=== PATIENT | female | born 1980 | race Caucasian/White ===

== ENCOUNTER → 2016-08-14 | Outpatient (CLI) | payer OTHER ==
[2016-04-01 22:15] VITALS: BP 124/75
[~2016-08-14] MED LIST: BENZ100C PO; HYDR-2758 PO
--- NOTE | 2016-08-14 10:47 | KCIC ---
Pelvic ultrasound HISTORY: Pelvic pain. Transabdominal scan Uterus measures 8.0 cm longitudinal by 3.4 cm AP by 4.4 cm wide. Transvaginal scan Uterus measures 8.8 cm longitudinal by 3.4 cm AP. Endometrial stripe measures 4 mm. Right ovary measures 3.1 cm long [place] with small follicular cysts. There is some vascularity documented on color flow Doppler images. Left ovary measures 3.9 cm long [place]. Left ovary contains a large complex cystic lesion with internal septation and mural nodule at its base. Color Doppler blood flow is identified within the septation. There is also some irregularity along the wall of this complex cystic lesion. Positive left ovarian blood flow is identified with duplex analysis. Mild free pelvic fluid is noted. There is a irregular region of tissue identified within the cervix with a cystic component. This measures about 5 mm in diameter. No significant hypervascularity here. IMPRESSION: 1. Complex cystic mass of the left ovary. Benign and malignant etiologies should be considered. Recommend further workup, which could include short-term follow-up pelvic ultrasound or MRI of the pelvis. 2. Small area of tissue heterogeneity within the cervix with cystic component, questionable significance. Electronically signed by: Geronimo Young MD (08/14/2016 10:44 AM)
== END | disposition home or self-care (01) ==
LOC: KCIC US 09:39
PROVIDERS: ATTEND Obstetrics & Gynecology
DX: N83.292 Other ovarian cyst, left side (principal)
CPT/HCPCS: 76830; 76856

== ENCOUNTER → 2016-08-21 | Outpatient (CLI) | payer OTHER ==
[2016-04-01 22:15] VITALS: BP 124/75
--- NOTE | 2016-08-21 13:18 | KCIC ---
Bone Densitometry History: Diabetic female. Screening. Findings: Bone Densitometry was performed with dual photon absorption of the lumbar spine and left proximal femur. Lumbar Spine: Bone density is 1.138 g/cm2 for L1-L4. T-score is 0.8. Z-score is 0.9. Left total femur density: Bone density is 1.134 g/cm2. T-score is 1.6. Z-score is 1.7. IMPRESSION: Bone mineral density of the lumbar spine and left femur is normal. World Health Organization definition of osteoporosis and osteopenia for women: normal equals T score at or above -1.0 standard deviations; osteopenia equals T score between -1.0 and -2.5 standard deviations; osteoporosis equals T score at or below -2.5 standard deviations. Electronically signed by: Tyrone Doan MD (08/21/2016 1:05 PM)
== END | disposition home or self-care (01) ==
LOC: KCIC DEXA 09:14
PROVIDERS: ATTEND Obstetrics & Gynecology
DX: E11.9 Type 2 diabetes mellitus without complications (principal); Z91.89 Other specified personal risk factors, not elsewhere classified; M85.88 Other specified disorders of bone density and structure, other site
CPT/HCPCS: 77080

== ENCOUNTER 2017-05-31 14:27 | Emergency (ER) | payer OTHER ==
[2017-05-31] MEDS: HYDROcodone/APAP 5/325MG 1 TAB TABLET PO (15:51)
== END 2017-05-31 16:10 | disposition home or self-care (01) ==
LOC: ER 14:27
DX: S43.401A Unspecified sprain of right shoulder joint, initial encounter (principal); E11.9 Type 2 diabetes mellitus without complications; Z88.0 Allergy status to penicillin; Z98.51 Tubal ligation status; V43.52XA Car driver injured in collision with other type car in traffic accident, initial encounter; Y93.I9 Activity, other involving external motion; Y92.481 Parking lot as the place of occurrence of the external cause; Y99.8 Other external cause status
CPT/HCPCS: 73030; 99284

== ENCOUNTER 2017-06-12 21:21 | Emergency (ER) | payer SELFPAY, OTHER ==
[2017-06-12] MEDS: ONDANSETRON ODT 4 MG TAB.RAPDIS. PO (23:55)
[2017-06-12] MEDS: DIPHTH,PERTUSS(ACELL),TET TOX 0.5 ML DISP.SYRIN. VAX IM (23:55)
[2017-06-12] MEDS: IBUPROFEN 800 MG TABLET. PO (23:55)
[2017-06-12] MEDS: HYDROcodone/APAP 5/325MG 1 TAB TABLET PO (23:55)
[2017-06-13] MEDS ORDERED: NEOMY/BACITR/POLYMYXIN OINT PACKET. TP (00:38)
[2017-06-13] MEDS: NEOMY/BACITR/POLYMYXIN OINT PACKET. TP (00:45)
== END 2017-06-13 00:50 | disposition home or self-care (01) ==
LOC: ER 21:21
DX: S01.01XA Laceration without foreign body of scalp, initial encounter (principal); S20.212A Contusion of left front wall of thorax, initial encounter; E11.9 Type 2 diabetes mellitus without complications; Z88.0 Allergy status to penicillin; W18.39XA Other fall on same level, initial encounter; Y93.89 Activity, other specified; Y99.8 Other external cause status; Y92.89 Other specified places as the place of occurrence of the external cause
CPT/HCPCS: 70450; 71101; 90471; 90715; 99284-25; Q0162

== ENCOUNTER 2018-02-17 19:13 | Emergency (ER) | payer SELFPAY ==
[~2018-02-17] VITALS: Ht 165.1 cm; Wt 109.8 kg
[~2018-02-17 19:13] MED LIST changes: -HYDR-2758 PO; +HYDR-2761 PO; +HYDR-3164 PO
--- NOTE | 2018-02-17 19:33 | PHYS DOC ---
Past Medical History Past Medical History: Bronchitis, Diabetes-Type II, MRSA, Other Additional Past Medical Histor: CYST FACE REMOVED,NASAL SURG Past Surgical History: Tubal ligation, Other Additional Past Surgical Histo: CYST REMOVAL,BREAST REDUCT,LUMP REMOVAL-BENIGN Alcohol Use: None Drug Use: None Adult General Chief Complaint Chief Complaint: CHEST PAIN HPI HPI Patient is a 37 year old female who presents with chest pain. This is been present intermittently for the past week. Patient was seen a week ago in an urgent care and diagnosed with bronchitis versus walking pneumonia and started on doxycycline, Mucinex DM, and an albuterol inhaler. Patient has a cough which seems to exacerbate symptoms, however slightly different discomfort in her left chest started today. Patient has no known PE risk factors to include trauma, stasis, nor hypercoagulable state that is known of. She denies any cough. Denies any radiation of the discomfort, denies any diaphoresis. [] Review of Systems Review of Systems Constitutional: Denies fever or chills [] Eyes: Denies change in visual acuity, redness, or eye pain [] HENT: Denies nasal congestion or sore throat [] Respiratory: See history of present illness[] Cardiovascular: No additional information not addressed in HPI [] GI: Denies abdominal pain, nausea, vomiting, bloody stools or diarrhea [] : Denies dysuria or hematuria [] Musculoskeletal: Denies back pain or joint pain [] Integument: Denies rash or skin lesions [] Neurologic: Denies headache, focal weakness or sensory changes [] Endocrine: Denies polyuria or polydipsia [] All other systems were reviewed and found to be within normal limits, except as documented in this note. Current Medications Current Medications Current Medications Medications (Trade) Dose Ordered Sig/Vinay Start Time Stop Time Status Last Admin Dose Admin Ketorolac Tromethamine (Toradol 15mg Vial) 15 mg STK-MED ONCE 02/17/18 20:09 02/17/18 20:10 DC Allergies Allergies Allergies Coded Allergies Type Severity Reaction Last Updated Verified Penicillins Allergy Intermediate Hives 04/01/16 Yes Cephalosporins Allergy Unknown 02/17/18 Yes Physical Exam Physical Exam Constitutional: Well developed, well nourished, no acute distress, non-toxic appearance. [] HENT: Normocephalic, atraumatic, bilateral external ears normal, oropharynx moist, no oral exudates, nose normal. [] Eyes: PERRLA, EOMI, conjunctiva normal, no discharge. [] Neck: Normal range of motion, no tenderness, supple, no stridor. [] Cardiovascular:Heart rate regular rhythm, no murmur [] Lungs & Thorax: Bilateral breath sounds clear to auscultation [] Abdomen: Bowel sounds normal, soft, no tenderness, no masses, no pulsatile masses. [] Skin: Warm, dry, no erythema, no rash. [] Back: No tenderness, no CVA tenderness. [] Extremities: No tenderness, no cyanosis, no clubbing, ROM intact, no edema. [] Neurologic: Alert and oriented X 3, normal motor function, normal sensory function, no focal deficits noted. [] Psychologic: Affect normal, judgement normal, mood normal. [] Current Patient Data Vital Signs Vital Signs Date Time Temp Pulse Resp B/P (MAP) Pulse Ox O2 Delivery O2 Flow Rate FiO2 02/17/18 20:05 90 117/69 (85) 100 Room Air 02/17/18 19:18 98.7 19 98.7 Lab Values Laboratory Tests Test 02/17/18 19:30 02/17/18 19:47 02/17/18 19:55 02/17/18 20:06 White Blood Count 11.6 x10^3/uL (4.0-11.0) H Red Blood Count 4.64 x10^6/uL (3.50-5.40) Hemoglobin 14.4 g/dL (12.0-15.5) Hematocrit 41.6 % (36.0-47.0) Mean Corpuscular Volume 90 fL (79-100) Mean Corpuscular Hemoglobin 31 pg (25-35) Mean Corpuscular Hemoglobin Concent 35 g/dL (31-37) Red Cell Distribution Width 13.2 % (11.5-14.5) Platelet Count 270 x10^3/uL (140-400) Neutrophils (%) (Auto) 54 % (31-73) Lymphocytes (%) (Auto) 37 % (24-48) Monocytes (%) (Auto) 6 % (0-9) Eosinophils (%) (Auto) 2 % (0-3) Basophils (%) (Auto) 1 % (0-3) Neutrophils # (Auto) 6.3 x10^3uL (1.8-7.7) Lymphocytes # (Auto) 4.3 x10^3/uL (1.0-4.8) Monocytes # (Auto) 0.6 x10^3/uL (0.0-1.1) Eosinophils # (Auto) 0.3 x10^3/uL (0.0-0.7) Basophils # (Auto) 0.1 x10^3/uL (0.0-0.2) Prothrombin Time 10.8 SEC (11.7-14.0) L Prothrombin Time INR 0.8 (0.8-1.1) D-Dimer (Kristin) 0.35 ug/mlFEU (0.00-0.50) Sodium Level 137 mmol/L (136-145) Potassium Level 4.2 mmol/L (3.5-5.1) Chloride Level 100 mmol/L (98-107) Carbon Dioxide Level 24 mmol/L (21-32) Anion Gap 13 (6-14) Blood Urea Nitrogen 12 mg/dL (7-20) Creatinine 1.0 mg/dL (0.6-1.0) Estimated GFR (Cockcroft-Gault) 62.1 BUN/Creatinine Ratio 12 (6-20) Glucose Level 354 mg/dL (70-99) H Calcium Level 9.3 mg/dL (8.5-10.1) Magnesium Level 1.9 mg/dL (1.8-2.4) Total Bilirubin 0.2 mg/dL (0.2-1.0) Aspartate Amino Transferase (AST) 13 U/L (15-37) L Alanine Aminotransferase (ALT) 21 U/L (14-59) Alkaline Phosphatase 82 U/L (46-116) Troponin I Quantitative < 0.017 ng/mL (0.000-0.055) WX-Nuo-P-Type Natriuretic Peptide 108 pg/mL (0-124) Total Protein 6.9 g/dL (6.4-8.2) Albumin 3.3 g/dL (3.4-5.0) L Albumin/Globulin Ratio 0.9 (1.0-1.7) L Lipase 228 U/L (73-393) Thyroid Stimulating Hormone (TSH) 1.048 uIU/mL (0.358-3.74) POC Troponin I 0.02 ng/ml (<0.08) Urine Color Yellow Urine Clarity Clear Urine pH 6.5 Urine Specific [place] >=1.030 Urine Protein Negative mg/dL (NEG-TRACE) Urine Glucose (UA) >=1000 mg/dL (NEG) Urine Ketones (Stick) Negative mg/dL (NEG) Urine Blood Small (NEG) Urine Nitrite Negative (NEG) Urine Bilirubin Negative (NEG) Urine Urobilinogen Dipstick 0.2 mg/dL (0.2 mg/dL) Urine Leukocyte Esterase Small (NEG) Urine RBC 6-10 /HPF (0-2) Urine WBC 5-10 /HPF (0-4) Urine Squamous Epithelial Cells Many /LPF Urine Bacteria Few /HPF (0-FEW) Urine Yeast Present /HPF POC Urine HCG, Qualitative Hcg negative (Negative) Laboratory Tests 02/17/18 19:30 Laboratory Tests 02/17/18 19:30 EKG EKG EKG shows a sinus rhythm, 98 bpm, no ST elevation, normal axis, QTC of 418 ms. No old EKG available for comparison.[] Radiology/Procedures Radiology/Procedures Portable chest x-ray shows no wide mediastinum, no infiltrate, no effusion, no pneumothorax.[] Course & Med Decision Making Course & Med Decision Making Pertinent Labs and Imaging studies reviewed. (See chart for details) Medical decision making: There is no evidence of this being acute coronary syndrome, troponin is negative despite multiple days of these symptoms. No evidence of pulmonary embolism, d-dimer is negative. No evidence of pneumonia or pneumothorax, neither of these are visualized on imaging. No evidence of esophageal rupture based on history. Some of this may be irritation due to the cough process that is been present as well as medication side effect due to the antibiotics previously prescribed. We will attempt outpatient pain management. ED course: Patient arrived, was placed in bed, in tolerated exam well. After the return of the lab and imaging findings, these were discussed with the patient who voiced understanding. All questions were answered.[] Dragon Disclaimer Dragon Disclaimer This electronic medical record was generated, in whole or in part, using a voice recognition dictation system. Departure Departure Impression: Primary Impression: Chest pain Disposition: 01 HOME, SELF-CARE Condition: GOOD Referrals: JULIO SHORT APRN (PCP) Follow-up in 2 days Patient Instructions: Chest Pain (Nonspecific), Diet - 2000 Calorie Diabetic Additional Instructions: Follow-up with your regular doctor in 2 days. Your blood sugar was elevated tonight, follow your diabetic diet and take her diabetes medications as prescribed. Return to the ER if worsening pain, worsening difficulty breathing, or any other concerns. Scripts D-Methorphan Hb/Prometh Hcl (PROMETHAZINE-DM SYRUP) 118 Ml Syrup 5 ML PO PRN Q4HRS, #120 ML Prov: MARIBEL DSOUZA DO 02/17/18 Meloxicam (MELOXICAM) 7.5 Mg Tablet 7.5 MG PO DAILY, #20 TAB Prov: MARIBEL DSOUZA DO 02/17/18 Problem Qualifiers Primary Impression: Chest pain Chest pain type: unspecified Qualified Codes: R07.9 - Chest pain, unspecified MARIBEL DSOUZA DO Feb 17, 2018 19:33
[2018-02-17 19:39] LABS: BASO # 0.1 x10^3/uL (0.0-0.2); BASO % 1 % (0-3); EOS # 0.3 x10^3/uL (0.0-0.7); EOS % 2 % (0-3); HEMATOCRIT 41.6 % (36.0-47.0); HEMOGLOBIN 14.4 g/dL (12.0-15.5); LYMPH # 4.3 x10^3/uL (1.0-4.8); LYMPH % 37 % (24-48); MEAN CORPUSCULAR HEMOGLOBIN 31 pg (25-35); MEAN CORPUSCULAR HGB CONC 35 g/dL (31-37); MEAN CORPUSCULAR VOLUME 90 fL (79-100); MONO # 0.6 x10^3/uL (0.0-1.1); MONO % 6 % (0-9); NEUT # 6.3 x10^3uL (1.8-7.7); NEUT % 54 % (31-73); PLATELET COUNT 270 x10^3/uL (140-400); RED BLOOD COUNT 4.64 x10^6/uL (3.50-5.40); RED CELL DISTRIBUTION WIDTH 13.2 % (11.5-14.5); WHITE BLOOD COUNT 11.6 x10^3/uL (4.0-11.0)
[2018-02-17 19:47] LABS: PROTHROMBIN TIME PATIENT 10.8 SEC (11.7-14.0)
[2018-02-17 19:51] LABS: D-DIMER 0.35 ug/mlFEU (0.00-0.50)
[2018-02-17 20:00] LABS: CALCIUM 9.3 mg/dL (8.5-10.1); GFR 62.1; POTASSIUM 4.2 mmol/L (3.5-5.1)
[2018-02-17 20:05] LABS: ALBUMIN 3.3 g/dL (3.4-5.0); ALBUMIN/GLOBULIN RATIO 0.9 (1.0-1.7); MAGNESIUM 1.9 mg/dL (1.8-2.4); TOTAL BILIRUBIN 0.2 mg/dL (0.2-1.0); TOTAL PROTEIN 6.9 g/dL (6.4-8.2)
[2018-02-17] MEDS ORDERED: KETOROLAC 15 MG/ML VIAL. ONE (20:09)
[2018-02-17 20:11] LABS: BILIRUBIN,URINE NEGATIVE (NEG); CLARITY,URINE CLEAR; COLOR,URINE YELLOW; NITRITE,URINE NEGATIVE (NEG); PH,URINE 6.5; PROTEIN,URINE NEGATIVE (NEG-TRACE); UROBILINOGEN,URINE 0.2 mg/dL (0.2 mg/dL)
[2018-02-17] MEDS ORDERED: KETOROLAC 15 MG/ML VIAL. IV ONE (20:15)
[2018-02-17 20:23] LABS: SQUAMOUS EPITHELIAL CELL,UR MANY /LPF
[2018-02-17 20:26] LABS: BACTERIA,URINE FEW /HPF (0-FEW); YEAST,URINE PRESENT /HPF
[2018-02-17] MEDS ORDERED: D-ME118S2 PO (20:39)
[2018-02-17] MEDS ORDERED: MELO7.5T29 PO (20:39)
[2018-02-17 20:45] VITALS: BP 129/69
--- NOTE | 2018-02-17 22:05 | RAD ---
AP chest. HISTORY: Chest pain AP view was taken of the chest. There is mild linear atelectasis without other infiltrates. There is no effusion. Heart is within normal limits in size. IMPRESSION: 1. Linear atelectasis in the lung bases without other acute infiltrates. Electronically signed by: Dru Menedz MD (02/17/2018 10:00 PM) [facility]
--- NOTE | 2018-02-18 06:32 | EKG ---
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
[2018-02-20] MEDS ORDERED: CITA10TA4 PO (07:04)
[2018-02-20] MEDS ORDERED: GLYB5TAB3 PO (07:04)
[2018-02-20] MEDS ORDERED: METF500T9 PO (07:04)
[2018-02-20] MEDS ORDERED: MONT10TA9 PO (07:04)
[2018-02-25] MEDS ORDERED: ALPR0.5T PO (13:32)
[2018-02-25] MEDS ORDERED: LISI2.5T PO (14:09)
[2018-02-25] MEDS ORDERED: METO25TA4 PO (14:10)
[2018-02-25] MEDS ORDERED: CLOP75TA PO (14:11)
[2018-02-25] MEDS ORDERED: ASPI-630 PO (14:12)
[2018-02-25] MEDS ORDERED: APIX5TAB PO (14:13)
[2018-02-25] MEDS ORDERED: ATOR40TA59 PO (14:13)
[2018-02-25] MEDS ORDERED: COLC0.6T34 PO (14:14)
[2018-02-25] MEDS ORDERED: AMIO200T4 PO (14:15)
[2018-02-25] MEDS ORDERED: DIGO125T PO (14:15)
== END 2018-02-17 20:50 | disposition home or self-care (01) ==
LOC: ER 19:13
DX: R07.89 Other chest pain (principal); E11.9 Type 2 diabetes mellitus without complications; Z86.14 Personal history of Methicillin resistant Staphylococcus aureus infection; Z88.0 Allergy status to penicillin; Z88.1 Allergy status to other antibiotic agents
CPT/HCPCS: 36415; 71045; 80053; 81001; 81025; 83690; 83735; 83880; 84443; 84484; 85025; 85379; 85610; 87086; 93005; 96374; 99284; J1885

== ENCOUNTER 2018-03-11 09:13 | Inpatient (IN) | payer SELFPAY ==
[~2018-03-11] VITALS: Ht 167.6 cm; Wt 112.1 kg
[~2018-03-11 09:13] MED LIST changes: +ALPR0.5T PO; +AMIO200T4 PO; +APIX5TAB PO; +ASPI-630 PO; +ATOR40TA59 PO; +CITA10TA4 PO; +CLOP75TA PO; +COLC0.6T34 PO; +DIGO125T PO; +GLYB5TAB3 PO; +LISI2.5T PO; +MELO7.5T29 PO; +METF500T9 PO; +METO25TA4 PO; +MONT10TA49 PO; +PROM118S9 PO
[2018-03-11] MEDS ORDERED: NITROGLYCERIN SUBLINGUAL 0.4 MG BOTTLE OF 25. SL PRN (09:30)
[2018-03-11 09:39] LABS: BASO # 0.1 x10^3/uL (0.0-0.2); BASO % 1 % (0-3); EOS # 0.2 x10^3/uL (0.0-0.7); EOS % 2 % (0-3); HEMATOCRIT 35.6 % (36.0-47.0); HEMOGLOBIN 12.5 g/dL (12.0-15.5); LYMPH # 2.2 x10^3/uL (1.0-4.8); LYMPH % 20 % (24-48); MEAN CORPUSCULAR HEMOGLOBIN 31 pg (25-35); MEAN CORPUSCULAR HGB CONC 35 g/dL (31-37); MEAN CORPUSCULAR VOLUME 88 fL (79-100); MONO # 0.7 x10^3/uL (0.0-1.1); MONO % 7 % (0-9); NEUT # 7.8 x10^3uL (1.8-7.7); NEUT % 71 % (31-73); PLATELET COUNT 404 x10^3/uL (140-400); RED BLOOD COUNT 4.03 x10^6/uL (3.50-5.40); RED CELL DISTRIBUTION WIDTH 13.6 % (11.5-14.5)
--- NOTE | 2018-03-11 09:39 | EKG ---
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
[2018-03-11] MEDS ORDERED: ASPIRIN CHEWABLE 81 MG TABLET. PO ONE (10:00)
[2018-03-11 10:03] LABS: CALCIUM 8.7 mg/dL (8.5-10.1); CREATININE 0.9 mg/dL (0.6-1.0); GFR 70.1; POTASSIUM 3.7 mmol/L (3.5-5.1); PREG TEST PT QUAL NEGATIVE (NEG)
[2018-03-11 10:09] LABS: ALBUMIN 3.4 g/dL (3.4-5.0); ALBUMIN/GLOBULIN RATIO 0.9 (1.0-1.7); TOTAL BILIRUBIN 0.5 mg/dL (0.2-1.0)
--- NOTE | 2018-03-11 10:10 | RAD ---
EXAM: AP View of the chest DATE: 03/11/2018 9:39 AM INDICATION: CHEST TIGHTNESS THIS AM COMPARISON: 02/20/2018, 02/17/2018 FINDINGS: The heart is not enlarged. Mediastinal and hilar contours are stable. Interstitial prominence in the bilateral lungs with patchy opacities in the left lung base and medial right lung base. Trace left pleural effusion. No pneumothorax. IMPRESSION: 1. Bilateral perihilar and lung base parenchymal opacities, nonspecific and although may represent atelectasis, multifocal pneumonia is not excluded. 2. Trace left pleural effusion 3. No pneumothorax. Electronically signed by: Obdulio Kimball MD (03/11/2018 10:06 AM) [facility]
--- NOTE | 2018-03-11 10:42 | PHYS DOC ---
Past Medical History Past Medical History: Anxiety, Asthma, Bronchitis, Diabetes-Type II, MRSA, Other Additional Past Medical Histor: CYST FACE REMOVED,NASAL SURG, MRSA Past Surgical History: Tubal ligation, Other Additional Past Surgical Histo: CYST REMOVAL,BREAST REDUCT,LUMP REMOVAL-BENIGN Alcohol Use: Occasionally Drug Use: None Adult General Chief Complaint Chief Complaint: CHEST PAIN HPI HPI Patient is a 37 year old right ear treated in this hospital 2 weeks ago for acute anterior wall ST segment elevation additional MD with stent placed in the distal LAD who presents with substernal chest pain starting 3 hours prior to ED arrival.. Patient describes substernal chest heaviness which is nonradiating. Not associated with dyspnea, nausea or sweats. Patient also reports right-sided breast pain which she states is sharp and worse with coughing. Patient has had right-sided chest pain the past 2 weeks. She also reports sore throat and sensation of airway swelling. No fever chills, nausea vomiting or sweats. No leg pain or swelling. Patient states symptoms feel different than previous MD. Patient's has been compliant with all medications and therapy since discharge from the hospital. She is a nonsmoker and denies drugs and alcohol. No other acute symptoms or complaints.[] Review of Systems Review of Systems ROS as per HPI. All other systems were reviewed and found to be within normal limits, except as documented in this note. Current Medications Current Medications Current Medications Medications (Trade) Dose Ordered Sig/Vinay Start Time Stop Time Status Last Admin Dose Admin Aspirin (Children'S Aspirin) 324 mg 1X ONCE 03/11/18 10:00 03/11/18 10:01 DC 03/11/18 09:47 324 MG Nitroglycerin (Nitrostat) 0.4 mg PRN Q5MIN PRN 03/11/18 09:30 03/11/18 09:47 0.4 MG Allergies Allergies Allergies Coded Allergies Type Severity Reaction Last Updated Verified Cephalosporins Allergy Intermediate Hives 02/20/18 Yes Penicillins Allergy Intermediate Hives 04/01/16 Yes Physical Exam Physical Exam Constitutional: Well developed, well nourished, no acute distress, non-toxic appearance. [] HENT: Normocephalic, atraumatic, bilateral external ears normal, oropharynx moist, no oral exudates, nose normal. [] Eyes: PERRLA, EOMI, conjunctiva normal, no discharge. [] Neck: Normal range of motion, no tenderness, supple, no stridor. [] Cardiovascular:Heart rate regular rhythm, negative Homans sign.[] Lungs & Thorax: Bilateral breath sounds clear to auscultation [] Abdomen: Bowel sounds normal, soft, no tenderness. [] Skin: Warm, dry, no erythema, no rash. [] Back: No tenderness, no CVA tenderness. [] Extremities: No tenderness, no cyanosis, no edema. [] Neurologic: Alert and oriented X 3, normal motor function, normal sensory function, no focal deficits noted. [] Psychologic: Affect normal, judgement normal, mood normal. [] Current Patient Data Vital Signs Vital Signs Date Time Temp Pulse Resp B/P (MAP) Pulse Ox O2 Delivery O2 Flow Rate FiO2 03/11/18 09:47 83 110/67 03/11/18 09:35 98.9 18 96 Room Air 98.9 Lab Values Laboratory Tests Test 03/11/18 09:24 White Blood Count 11.0 x10^3/uL (4.0-11.0) Red Blood Count 4.03 x10^6/uL (3.50-5.40) Hemoglobin 12.5 g/dL (12.0-15.5) Hematocrit 35.6 % (36.0-47.0) L Mean Corpuscular Volume 88 fL (79-100) Mean Corpuscular Hemoglobin 31 pg (25-35) Mean Corpuscular Hemoglobin Concent 35 g/dL (31-37) Red Cell Distribution Width 13.6 % (11.5-14.5) Platelet Count 404 x10^3/uL (140-400) H Neutrophils (%) (Auto) 71 % (31-73) Lymphocytes (%) (Auto) 20 % (24-48) L Monocytes (%) (Auto) 7 % (0-9) Eosinophils (%) (Auto) 2 % (0-3) Basophils (%) (Auto) 1 % (0-3) Neutrophils # (Auto) 7.8 x10^3uL (1.8-7.7) H Lymphocytes # (Auto) 2.2 x10^3/uL (1.0-4.8) Monocytes # (Auto) 0.7 x10^3/uL (0.0-1.1) Eosinophils # (Auto) 0.2 x10^3/uL (0.0-0.7) Basophils # (Auto) 0.1 x10^3/uL (0.0-0.2) D-Dimer (Kristin) 2.25 ug/mlFEU (0.00-0.50) H Sodium Level 138 mmol/L (136-145) Potassium Level 3.7 mmol/L (3.5-5.1) Chloride Level 100 mmol/L (98-107) Carbon Dioxide Level 27 mmol/L (21-32) Anion Gap 11 (6-14) Blood Urea Nitrogen 8 mg/dL (7-20) Creatinine 0.9 mg/dL (0.6-1.0) Estimated GFR (Cockcroft-Gault) 70.1 BUN/Creatinine Ratio 9 (6-20) Glucose Level 182 mg/dL (70-99) H Calcium Level 8.7 mg/dL (8.5-10.1) Total Bilirubin 0.5 mg/dL (0.2-1.0) Aspartate Amino Transferase (AST) 28 U/L (15-37) Alanine Aminotransferase (ALT) 46 U/L (14-59) Alkaline Phosphatase 63 U/L (46-116) Troponin I Quantitative 0.104 ng/mL (0.000-0.055) AR-Tvz-T-Type Natriuretic Peptide 4410 pg/mL (0-124) H Total Protein 7.0 g/dL (6.4-8.2) Albumin 3.4 g/dL (3.4-5.0) Albumin/Globulin Ratio 0.9 (1.0-1.7) L Serum Test, Qualitative Negative (NEG) Laboratory Tests 03/11/18 09:24 Laboratory Tests 03/11/18 09:24 EKG EKG [EKG: Sinus rhythm, [address] elevation in leads V2 through V4 ,No reciprocal changes. ST changes in the same distribution as previous EKG dated 02/21/18.] Radiology/Procedures Radiology/Procedures Chest XR: Bilateral. Hilar lung parenchymal opacities possible pneumonia, left pleural effusion per radiology report] Course & Med Decision Making Course & Med Decision Making Pertinent Labs and Imaging studies reviewed. (See chart for details) [No chest pain in setting of recent ST segment elevation MD. EKG findings are of uncertain acuity given recent MD. Trop elevated, chest x-ray findings suggestive of pneumonia and pulmonary congestion. Patient's pain relief from a 61 with nitroglycerin and aspirin. Cardiology service consulted. ] Ermias Disclaimer Ermias Disclaimer This electronic medical record was generated, in whole or in part, using a voice recognition dictation system. Departure Departure Impression: Primary Impression: ACS (acute coronary syndrome) Disposition: 09 ADMITTED INPATIENT Admitting Physician: Vane Escobar Condition: GOOD Referrals: JULIO SHORT APRN (PCP) TESHA WARE DO Mar 11, 2018 10:42
[2018-03-11 10:50] LABS: CREATINE KINASE 34 U/L (26-192)
[2018-03-11] MEDS ORDERED: IOHEXOL 350 MG/ML 100 ML VIAL. IV ONE (11:30)
[2018-03-11] MEDS ORDERED: CONTRAST GIVEN. MC PRN (11:30)
--- NOTE | 2018-03-11 11:51 | HP ---
ADMIT DATE: 03/11/2018 CHIEF COMPLAINT: Chest discomfort. HISTORY OF PRESENT ILLNESS: The patient is a pleasant 37-year-old female who we just had in the hospital 2 weeks ago. She got a couple cardiac stents at that time, she had an anterior wall AK. Today, she presents with more chest discomfort. We are concerned she could be having recurrent acute coronary syndrome, rates it at 9/10. She has associated anxiety. Home meds did not seem to work, describes as agonizing. I discussed the case with ER physician. We are going to admit the patient and consult Cardiology. PAST MEDICAL HISTORY: Coronary artery disease and she got stents recently, anxiety, asthma, bronchitis, diabetes, nasal surgery, breast reduction. ALLERGIES: CEPHALOSPORINS and PENICILLIN. FAMILY HISTORY: Coronary artery disease. SOCIAL HISTORY: She does not drink, smoke or take drugs. MEDICATIONS: Reviewed, please refer to the MRAD. She is on 17 including Eliquis, Plavix, amiodarone, digoxin, atorvastatin, metoprolol, lisinopril, aspirin, hydrocodone, citalopram, Xanax, Tessalon Perles, promethazine, Singulair, metformin, glyburide, and colchicine. REVIEW OF SYSTEMS: GENERAL: No history of weight change, weakness or fevers. SKIN: No bruising, hair changes or rashes. EYES: No blurred, double or loss of vision. NOSE AND THROAT: No history of nosebleeds, hoarseness or sore throat. HEART: She complains of chest pressure. LUNGS: Denies cough, hemoptysis, wheezing or shortness of breath. GASTROINTESTINAL: Denies changes in appetite, nausea, vomiting, diarrhea or constipation. GENITOURINARY: No history of frequency, urgency, hesitancy or nocturia. NEUROLOGIC: Denies history of numbness, tingling, tremor or weakness. PSYCHIATRIC: No history of panic, anxiety or depression. ENDOCRINE: No history of heat or cold intolerance, polyuria or polydipsia. EXTREMITIES: Denies muscle weakness, joint pain, pain on walking or stiffness. PHYSICAL EXAMINATION: VITAL SIGNS: Temperature 98, pulse 80, respirations 16, blood pressure 115/50. GENERAL: She is alert, cooperative, anxious. HEART: Normal S1, S2. LUNGS: Clear to auscultation. ABDOMEN: Soft, positive bowel sounds. EXTREMITIES: Trace edema. SKIN: No rash. ENDOCRINE: No thyromegaly. LYMPHATICS: No cervical nodes. HEMATOPOIETIC: No bruising. PSYCHIATRIC: She is anxious. LABORATORY DATA: Hematology is normal. Electrolytes are normal. Troponin is 0.1. BNP 4410. EKG shows subtle ST depression. ASSESSMENT AND PLAN: Chest pain, elevated troponin, heart failure in a middle-aged female who had recent coronary artery disease with stents. We will admit the patient, consult Cardiology, serial enzymes, serial EKGs. Home meds. PROGNOSIS: Guarded. ROSIE MACE DO DR: SAL/meera JOB#: [id number] / [id number]
--- NOTE | 2018-03-11 13:25 | RAD ---
CTA of the chest with contrast, 03/11/2018: HISTORY: Chest pain, elevated d-dimer Multidetector CT imaging was performed following an IV bolus injection of iodinated contrast material. Multiplanar reconstructions were produced including coronal and sagittal MIP images. The main and lobar pulmonary arteries are well opacified and no filling defects are seen to suggest pulmonary emboli. Some of the smaller pulmonary arteries, particularly in the lung bases are less well delineated due to respiratory motion artifact. No definite pulmonary emboli are seen. The thoracic aorta is unremarkable. A stent is evident in the left anterior descending coronary artery. Small mediastinal lymph nodes are seen without definite pathologic enlargement. There are small to moderate size bilateral pleural effusions with moderate underlying atelectasis in both lower lobes. Mild interlobular septal thickening is evident bilaterally. A calcified granuloma is present in the right upper lobe. There is a peripheral parenchymal or pleural calcification laterally in the right mid chest. There are several small subpleural and perifissural opacities in both lungs which may represent atelectasis, scarring or minimal infiltrates. A peripheral density medially in the right middle lobe probably represents atelectasis. A 6 mm nonspecific nodule is seen posteriorly in the right lower lobe on image 67 of series #3. IMPRESSION: 1. No CT evidence of central pulmonary emboli. 2. Small to moderate size bilateral pleural effusions with moderate underlying atelectasis in both lower lobes. 3. Mild interlobular septal thickening in the lungs suggests mild edema. 4. Additional small scattered predominantly peripheral and perifissural opacities as described above, likely representing atelectasis/infiltrate. PQRS Compliance Statement: One or more of the following individualized dose reduction techniques were utilized for this examination: 1. Automated exposure control 2. Adjustment of the mA and/or kV according to patient size 3. Use of iterative reconstruction technique Electronically signed by: Gilmar Bertrand MD (03/11/2018 1:21 PM) [facility]
[2018-03-11] MEDS ORDERED: ALPRAZolam 0.5 MG TABLET PO PRN (13:45)
[2018-03-11] MEDS ORDERED: BENZONATATE 100 MG CAPSULE. PO PRN (14:00)
[2018-03-11] MEDS ORDERED: FUROSEMIDE 40 MG/4 ML VIAL. IVP ONE (14:15)
--- NOTE | 2018-03-11 14:30 | PDOC2 ---
KATIE CHARLES ENVIRONMENTAL STUDIES PROFESSOR 03/11/18 1430: CARDIAC CONSULT DATE OF CONSULT Date of Consult DATE: 03/11/18 TIME: 14:03 REASON FOR CONSULT Reason for Consult: Chest Pain REFERRING PHYSICIAN Referring Physician: Dr. Escobar SOURCE Source: Chart review, Patient HISTORY OF PRESENT ILLNESS HISTORY OF PRESENT ILLNESS This is a 37 yo female, status post recent late-presentation STEMI with single vessel CAD s/p PCI/UNIQUE to the LAD, who presented with complaints of chest pressure, cough, and LE edema. Pressure began this morning around 4 am. Has been constant since. Located in her central chest. Non-radiating. No associated dizziness, diaphoresis, palpitations, or nausea/vomiting. No worsening factors. Improved with nitro in ED. Pain/pressure experienced is very different from what she experienced with the STEMI last month. Reports having mild LE edema since discharge from the hospital two weeks ago. Although she denies any specific SOA, reports that he breathing has been "different" for the last 2-3 days. Cough has also been present since discharge two week ago. Is productive of clear sputum. No fevers. Around midnight, throat became dry and scratchy. For the last two weeks, has experienced heartburn daily , which is much more frequent than usual. Reports compliance with all medications including DAPT with ASA and Effient. PAST MEDICAL HISTORY Cardiovascular: AFIB (paroxysmal ), CAD (s/p PCI/UNIQUE to LAD), CHF, MO (STEMI), Hyperlipidemia Pulmonary: No pertinent hx GI: GERD Heme/Onc: No pertinent hx Hepatobiliary: No pertinent hx Psych: No pertinent hx Rheumatologic: No pertinent hx Infectious disease: No pertinent hx ENT: No pertinent hx Renal/: No pertinent hx Endocrine: Diabetes Dermatology: No pertinent hx PAST SURGICAL HISTORY Past Surgical History: Tubal Ligation FAMILY HISTORY Family History: Coronary Artery Disease SOCIAL HISTORY Smoke: Quit (last month) ALCOHOL: none Drugs: None Lives: with Family CURRENT MEDICATIONS CURRENT MEDICATIONS Current Medications Medications (Trade) Dose Ordered Sig/Vinay Route PRN Reason Start Time Stop Time Status Last Admin Dose Admin Aspirin (Children'S Aspirin) 324 mg 1X ONCE PO 03/11/18 10:00 03/11/18 10:01 DC 03/11/18 09:47 Nitroglycerin (Nitrostat) 0.4 mg PRN Q5MIN PRN SL CHEST PAIN 03/11/18 09:30 03/11/18 09:47 Iohexol (Omnipaque 350 Mg/ml) 100 ml 1X ONCE IV 03/11/18 11:30 03/11/18 11:31 DC 03/11/18 11:30 ALLERGIES ALLERGIES: Coded Allergies: Cephalosporins (Verified Allergy, Intermediate, Hives, 02/20/18) Penicillins (Verified Allergy, Intermediate, Hives, 04/01/16) ITCHING, N/V, RASH ROS Review of System 14 point ROS conducted with with pertinent positives notes above in HPI PHYSICAL EXAM General: Alert, Oriented X3, Cooperative, No acute distress HEENT: Atraumatic, Mucous membr. moist/pink Lungs: Normal air movement, Other (bibasilar crackles ) Heart: Regular rate, Normal S1, Normal S2, Other (tele SR) Abdomen: Soft, No tenderness Extremities: Normal pulses, Other (1+ bilateral LE edema ) Skin: No breakdown, No significant lesion Neuro: Normal speech, Sensation intact Psych/Mental Status: Mental status NL, Mood NL MUSCULOSKELETAL: No deformity VITALS VITALS Vital Signs Date Time Temp Pulse Resp B/P (MAP) Pulse Ox O2 Delivery O2 Flow Rate FiO2 03/11/18 13:42 Room Air 03/11/18 10:56 82 16 135/59 (84) 95 03/11/18 09:35 98.9 98.9 LABS Lab: Laboratory Tests Test 03/11/18 09:24 03/11/18 13:35 White Blood Count 11.0 x10^3/uL (4.0-11.0) Red Blood Count 4.03 x10^6/uL (3.50-5.40) Hemoglobin 12.5 g/dL (12.0-15.5) Hematocrit 35.6 % (36.0-47.0) Mean Corpuscular Volume 88 fL (79-100) Mean Corpuscular Hemoglobin 31 pg (25-35) Mean Corpuscular Hemoglobin Concent 35 g/dL (31-37) Red Cell Distribution Width 13.6 % (11.5-14.5) Platelet Count 404 x10^3/uL (140-400) Neutrophils (%) (Auto) 71 % (31-73) Lymphocytes (%) (Auto) 20 % (24-48) Monocytes (%) (Auto) 7 % (0-9) Eosinophils (%) (Auto) 2 % (0-3) Basophils (%) (Auto) 1 % (0-3) Neutrophils # (Auto) 7.8 x10^3uL (1.8-7.7) Lymphocytes # (Auto) 2.2 x10^3/uL (1.0-4.8) Monocytes # (Auto) 0.7 x10^3/uL (0.0-1.1) Eosinophils # (Auto) 0.2 x10^3/uL (0.0-0.7) Basophils # (Auto) 0.1 x10^3/uL (0.0-0.2) D-Dimer (Kristin) 2.25 ug/mlFEU (0.00-0.50) Sodium Level 138 mmol/L (136-145) Potassium Level 3.7 mmol/L (3.5-5.1) Chloride Level 100 mmol/L (98-107) Carbon Dioxide Level 27 mmol/L (21-32) Anion Gap 11 (6-14) Blood Urea Nitrogen 8 mg/dL (7-20) Creatinine 0.9 mg/dL (0.6-1.0) Estimated GFR (Cockcroft-Gault) 70.1 BUN/Creatinine Ratio 9 (6-20) Glucose Level 182 mg/dL (70-99) Calcium Level 8.7 mg/dL (8.5-10.1) Total Bilirubin 0.5 mg/dL (0.2-1.0) Aspartate Amino Transf (AST/SGOT) 28 U/L (15-37) Alanine Aminotransferase (ALT/SGPT) 46 U/L (14-59) Alkaline Phosphatase 63 U/L (46-116) Creatine Kinase 34 U/L (26-192) Creatine Kinase MB (Mass) 0.8 ng/mL (0.0-3.6) Creatine Kinase MB Relative Index % (0-4) Troponin I Quantitative 0.104 ng/mL (0.000-0.055) 0.088 ng/mL (0.000-0.055) LG-Pij-F-Type Natriuretic Peptide 4410 pg/mL (0-124) Total Protein 7.0 g/dL (6.4-8.2) Albumin 3.4 g/dL (3.4-5.0) Albumin/Globulin Ratio 0.9 (1.0-1.7) Serum Test, Qualitative Negative (NEG) ECHOCARDIOGRAM ECHOCARDIOGRAM <Conclusion> Limited echo with contrast. Severe hypokinesis of mid to distal anteroseptal wall and the apical wall. The ejection fraction is estimated at 40-45%. There is no evidence of significant pericardial effusion. DATE: 02/22/18 1040 ASSESSMENT/PLAN ASSESSMENT/PLAN 1. Chest pain, atypical. Possibly GI in nature. Initial trop 0.1. EKG without significant acute changes per review of previous studies 2. Mild acute on chronic systolic HF; LVEF 40-45% per recent echo 3. CAD/ recent late-presentation STEMI; s/p PCI/UNIQUE to LAD. 4. PAFIB; maintaining SR. 5. Diabetes, II 6. Dyslipidemia; statin 7. Elevated D-dimer; CTA negative for PE Recommendations Lasix IV x1 Add PPI Trend troponin Resume secondary prevention measures including DAPT with ASA and Plavix Eliquis for stroke prophylaxis Amiodarone for rhythm maintenance LURDES CARRINGTON MD 03/11/18 1629: CARDIAC CONSULT ASSESSMENT/PLAN ASSESSMENT/PLAN Pt. seen and examined. 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 On exam/presentation most suggestive of HF Stop Eliquis. Continue plavix and asa. Consider PPI. Continue amiodarone for another 1 month Discussed need to obtain insurance for future heart care. Ok to DC in a.m Agree with lasix. Thanks. Discussed with nursing staff and family MELVINKATIE CIELO Mar 11, 2018 14:30 LURDES CARRINGTON MD Mar 11, 2018 16:29
[2018-03-11 15:00] VITALS: BP 97/58
[2018-03-11] MEDS: PANTOPRAZOLE 40 MG TABLET.DR. PO SCH (15:00)
[2018-03-11] MEDS: LIDO:MAALOX 1:1 20 ML SINGLE DOSE. PO PRN ×2 (15:20→20:55)
[2018-03-11] MEDS: glyBURIDE 5 MG TABLET PO SCH (18:00)
--- NOTE | 2018-03-11 18:36 | NUR ---
1400 Adm to 114 as CVC overflow w acute coronary syndrome. NO significant acute EKG/marker changes . Meds administered w good diuresis from 1430 lasix. Independent room activity w/o voiced c/o. No overt SOA. On room air. Dr Mancia in. Explanation of are meds,prognosis. Continue POC
[2018-03-11 19:40] VITALS: BP 101/55
[2018-03-11] MEDS: ATORVASTATIN CALCIUM 40 MG TABLET. PO SCH ×2 (20:55→21:00)
[2018-03-11] MEDS: METOPROLOL TART IMMED RELEASE 25 MG TABLET. PO SCH (20:57)
[2018-03-11] MEDS ORDERED: APIXABAN 5 MG TABLET. PO SCH (21:00)
[2018-03-11] MEDS ORDERED: MONTELUKAST SODIUM 10 MG TABLET. PO SCH (21:00)
[2018-03-11 23:00] VITALS: BP 107/69
[2018-03-12 03:54] VITALS: BP 97/45
[2018-03-12 07:00] VITALS: BP 107/63
[2018-03-12] MEDS: glyBURIDE 5 MG TABLET PO SCH ×2 (08:16→12:21)
[2018-03-12] MEDS: PANTOPRAZOLE 40 MG TABLET.DR. PO SCH (08:16)
[2018-03-12] MEDS: METOPROLOL TART IMMED RELEASE 25 MG TABLET. PO SCH (08:18)
[2018-03-12] MEDS ORDERED: CLOPIDOGREL BISULFATE 75 MG TABLET PO SCH (09:00)
[2018-03-12] MEDS ORDERED: CITALOPRAM 10 MG TABLET. PO SCH (09:00)
[2018-03-12] MEDS ORDERED: COLCHICINE 0.6 MG TABLET PO SCH (09:00)
[2018-03-12] MEDS ORDERED: ASPIRIN CHEWABLE 81 MG TABLET. PO SCH (09:00)
[2018-03-12] MEDS ORDERED: LISINOPRIL 5 MG TABLET. PO SCH (09:00)
[2018-03-12] MEDS ORDERED: AMIODARONE HCL 200 MG TABLET. PO SCH (09:00)
[2018-03-12] MEDS ORDERED: DIGOXIN 125 MCG TABLET. PO SCH (09:00)
[2018-03-12 11:00] VITALS: BP 106/59
[2018-03-12] MEDS ORDERED: POTASSIUM CHLORIDE 10 MEQ TABLET.ER. PO SCH (12:00)
[2018-03-12] MEDS ORDERED: FUROSEMIDE 40 MG TABLET. PO SCH (12:00)
[2018-03-12] MEDS ORDERED: FURO40TA4 PO (12:21)
[2018-03-12] MEDS ORDERED: LEVO500T59 PO (12:21)
[2018-03-12] MEDS ORDERED: Pantoprazole PO (12:21)
[2018-03-12] MEDS ORDERED: POTA10TA12 PO (12:21)
--- NOTE | 2018-03-12 13:25 | NUR ---
Discharge Note: [facility] Discharge instructions and discharge home medications reviewed with Patient and a copy given. All questions have been answered and understanding verbalized. The following instructions and handouts were given: Follow up with Dr. Mancia in 3-4 weeks. Fill prescriptions. Discontinued lines and drains: Peripheral IV intact. Patient discharged to Home or Self Care with Friend via Wheelchair
--- NOTE | 2018-03-12 14:00 | PDOC3 ---
Discharge Summary [facility] Date of Admission: Mar 11, 2018 Discharge Date: Mar 12, 2018 Admitting Diagnosis chest pain, could 2/2 gerd uvulitis h/o CAD with stents acute systolic CHF ef 40% HLD dm2 morbid obesity anxiety CONSULTS card Brief Hospital Course Ms. Leigh is a 37 old F, who recently got stents at [facility], came for chest pain and throat pain x1d. pt said the chest pain was uncomfortable, not feels like MA last time, BNP 4000 , trop o.1. card consulte,d think it is GERD, pt admitted, and started on protonix. she took tums at home. She has has severe pain at throat when swallow, i noticed mild swelling, red and a white dot at uvular. she c/o sob, and leg swelling, which is very mild actually, 1+ but pt feels it is worse today. ok to dc, with lasix, protonix, and levaquin since cannot take PCN. dc time 35min. VITAL SIGNS: Temperature 98, pulse 80, respirations 16, blood pressure 115/50. GENERAL: She is alert, cooperative, anxious. uvula has a small white dot. mild swelling and erythema. HEART: Normal S1, S2. LUNGS: rt mild decreased bs. ABDOMEN: Soft, positive bowel sounds. EXTREMITIES: 1+ pitting edema. SKIN: No rash. ENDOCRINE: No thyromegaly. LYMPHATICS: No cervical nodes. HEMATOPOIETIC: No bruising. PSYCHIATRIC: She is anxious. Disposition home CONDITION AT DISCHARGE: Improved Scheduled Amiodarone Hcl (Amiodarone Hcl), 1 TAB PO DAILY, (Reported) Aspirin (Aspirin), 1 TAB PO DAILY, (Reported) Atorvastatin Calcium (Atorvastatin Calcium), 1 TAB PO QHS, (Reported) Citalopram Hydrobromide (Citalopram Hbr), 1 TAB PO DAILY, (Reported) Clopidogrel Bisulfate (Clopidogrel), 1 TAB PO DAILY, (Reported) Colchicine (Colcrys), 1 TAB PO DAILY, (Reported) D-Methorphan Hb/Prometh Hcl (Promethazine-Dm Syrup), 5 ML PO PRN Q4HRS Digoxin (Digoxin), 1 TAB PO DAILY, (Reported) Furosemide (Furosemide), 40 MG PO DAILY Glyburide (Glyburide), 1 TAB PO TID, (Reported) Levofloxacin (Levaquin), 500 MG PO DAILY06 Lisinopril (Lisinopril), 1 TAB PO DAILY, (Reported) Metformin Hcl (Metformin Hcl Er), 3 TAB PO DAILYWBKFT, (Reported) Metoprolol Tartrate (Metoprolol Tartrate), 0.5 TAB PO BID, (Reported) Montelukast Sodium (Montelukast Sodium Tablet), 1 TAB PO DAILY, (Reported) Potassium Chloride (Klor-Con 10), 10 MEQ PO DAILYWBKFT [Pantoprazole], 40 MG PO DAILYAC Scheduled PRN Alprazolam (Xanax), 1 TAB PO PRN Q8HRS PRN for ANXIETY / AGITATION, (Reported) Benzonatate (Tessalon Perle), 100 MG PO TID PRN for COUGH Hydrocodone Bit/Acetaminophen (Hydrocodone-Apap 5-325 ), 1 TAB PO PRN Q6HRS PRN for PAIN Discontinued Medications Apixaban (Eliquis), 5 MG PO BID, (Reported) PHYLLIS BREAUX MD Mar 12, 2018 14:00
--- NOTE | 2018-03-12 15:08 | NUR ---
[facility] pharmacy called regarding pt prescription of levaquin. Contacted Dr. Kaba regarding medication and Dr. Kaba spoke with pharmacy and due to medication allergies, she will take Levaquin with amiodorone.
[2018-03-12] MEDS ORDERED: LACTOBACILLUS RHAMNOSUS GG 1 CAPSULE. PO SCH (21:00)
[2018-03-13] MEDS ORDERED: metFORMIN XR 500 MG TAB.ER.24H PO SCH (12:00)
== END 2018-03-12 13:25 | disposition home or self-care (01) | DRG 391 ==
LOC: ER 09:13 → 1 WEST ICU 10:25
PROVIDERS: ADMIT Internal Medicine; ATTEND Internal Medicine
DX: K21.9 Gastro-esophageal reflux disease without esophagitis (principal); I50.23 Acute on chronic systolic (congestive) heart failure; I24.9 Acute ischemic heart disease, unspecified; K12.2 Cellulitis and abscess of mouth; E11.9 Type 2 diabetes mellitus without complications; E66.01 Morbid (severe) obesity due to excess calories; E78.5 Hyperlipidemia, unspecified; F41.9 Anxiety disorder, unspecified; I25.10 Atherosclerotic heart disease of native coronary artery without angina pectoris; I48.0 Paroxysmal atrial fibrillation; I25.2 Old myocardial infarction; J45.909 Unspecified asthma, uncomplicated; N64.4 Mastodynia; R79.1 Abnormal coagulation profile; Z79.02 Long term (current) use of antithrombotics/antiplatelets; Z82.49 Family history of ischemic heart disease and other diseases of the circulatory system; Z95.5 Presence of coronary angioplasty implant and graft; Z98.51 Tubal ligation status; Z68.39 Body mass index [BMI] 39.0-39.9, adult; Z79.01 Long term (current) use of anticoagulants; Z88.0 Allergy status to penicillin; Z88.8 Allergy status to other drugs, medicaments and biological substances
CPT/HCPCS: 36415; 71045; 71275; 80053; 82553; 82962; 83880; 84484; 84703; 85025; 85379; 87641; 93005; J1940; Q9967; 99285-25; G0378

== ENCOUNTER 2018-08-19 19:05 | Emergency (ER) | payer SELFPAY ==
[~2018-08-19] VITALS: Ht 167.6 cm; Wt 112.0 kg
[~2018-08-19 19:05] MED LIST changes: +D-ME118S2 PO; +FURO40TA4 PO; +LEVO500T59 PO; +POTA10TA12 PO; -PROM118S9 PO; +Pantoprazole PO
[2018-08-19 19:18] VITALS: BP 117/59
--- NOTE | 2018-08-19 19:57 | PHYS DOC ---
Past Medical History Past Medical History: Anxiety, Asthma, Bronchitis, Diabetes-Type II, MA, MRSA, Other Additional Past Medical Histor: CYST FACE REMOVED,NASAL SURG, MRSA, cardiac stent 01/2018 Past Surgical History: Tubal ligation, Other Additional Past Surgical Histo: CYST REMOVAL,BREAST REDUCT,LUMP REMOVAL-BENIGN Alcohol Use: Occasionally Drug Use: None Adult General Chief Complaint Chief Complaint: FOOT INJURY PAIN [facility] Patient is a 37 year old female who presents with this morning began having right ankle pain wraps Around the top of her foot that is sharp and aching. She rates a 2 out of 10 when sitting but when she stands and puts pressure on the affected foot becomes an 8 out of 10. Patient denies skin color change, numbness or tingling, or injury. Review of Systems Review of Systems Constitutional: Denies fever or chills [] Eyes: Denies change in visual acuity, redness, or eye pain [] HENT: Denies nasal congestion or sore throat [] Respiratory: Denies cough or shortness of breath [] Cardiovascular: No additional information not addressed in HPI [] GI: Denies abdominal pain, nausea, vomiting, bloody stools or diarrhea [] : Denies dysuria or hematuria [] Musculoskeletal: Denies back pain. Right ankle and foot joint pain [] Integument: Denies rash or skin lesions [] Neurologic: Denies headache, focal weakness or sensory changes [] All other systems were reviewed and found to be within normal limits, except as documented in this note. Allergies Allergies Allergies Coded Allergies Type Severity Reaction Last Updated Verified Cephalosporins Allergy Intermediate Hives 02/20/18 Yes Penicillins Allergy Intermediate Hives 04/01/16 Yes Physical Exam Physical Exam Constitutional: Well developed, well nourished, no acute distress, non-toxic appearance. [] HENT: Normocephalic, atraumatic, bilateral external ears normal, oropharynx moist, no oral exudates, nose normal. [] Eyes: PERRLA, EOMI, conjunctiva normal, no discharge. [] Neck: Normal range of motion, no tenderness, supple, no stridor. [] Cardiovascular:Heart rate regular rhythm, no murmur [] Lungs & Thorax: Bilateral breath sounds clear to auscultation [] Abdomen: Bowel sounds normal, soft, no tenderness, no masses, no pulsatile masses. [] Skin: Warm, dry, no erythema, no rash. [] Back: No tenderness, no CVA tenderness. [] Extremities: Right outter ankle up over upper foot about half way tenderness, no cyanosis, no clubbing, ROM intact, no edema. [] Neurologic: Alert and oriented X 3, normal motor function, normal sensory function, no focal deficits noted. [] Psychologic: Affect normal, judgement normal, mood normal. [] Current Patient Data Vital Signs Vital Signs Date Time Temp Pulse Resp B/P (MAP) Pulse Ox O2 Delivery O2 Flow Rate FiO2 08/19/18 19:18 98.3 84 20 117/59 (78) 97 Room Air 98.3 EKG EKG [] Radiology/Procedures Radiology/Procedures [] Course & Med Decision Making Course & Med Decision Making Patient is a 37 year old female who presents with this morning began having right ankle pain wraps Around the top of her foot that is sharp and aching. She rates a 2 out of 10 when sitting but when she stands and puts pressure on the affected foot becomes an 8 out of 10. Patient denies skin color change, numbness or tingling, or injury. There is no swelling in the right lower leg compared to the left lower leg. No calf tenderness. No signs of DVT. Vital signs within normal limits. Patient denies chest pain or shortness of air. Pedal pulses bilaterally are strong and palpable. Cap refill is less than 3 seconds. Skin is pink warm and dry. There is tenderness to the right her ankle over the very top of the foot up about assisted. No bruising, deformity, abrasions, redness seen. Patient states she hasn't done anything out of the ordinary that on Sunday she did to a lot of yard work. States she can she does not remember injuring the ankle. Range of motion is intact right lower extremity ankle and she can wiggle toes. There is no pain to knee or behind the knee. Dr Muñoz read xrays as normal and patient has a likely strain of her foot or ankle. Patient will be given a jt bandage and should follow up with her primary care physician. [place] Disclaimer Dragon Disclaimer This electronic medical record was generated, in whole or in part, using a voice recognition dictation system. Departure Departure Impression: Primary Impression: Foot pain Additional Impression: Ankle pain Disposition: 01 HOME, SELF-CARE Condition: STABLE Referrals: JULIO SHORT APRN (PCP) Patient Instructions: Muscle Strain, Strain-SportsMed Additional Instructions: Follow up with your primary care. Use Ice, elevation, jt wrap, Ibuprofen or Tylenol for pain. Rest the Right foot as much as possible. Problem Qualifiers Primary Impression: Foot pain Laterality: right Qualified Codes: M79.671 - Pain in right foot Additional Impression: Ankle pain Chronicity: acute Laterality: right Qualified Codes: M25.571 - Pain in right ankle and joints of right foot BLAYNE PINEDA APRN Aug 19, 2018 19:57
--- NOTE | 2018-08-19 21:53 | RAD ---
Right ankle x-rays 3 views HISTORY: Right ankle pain. FINDINGS: Spur the plantar calcaneus. No fracture or dislocation. No arthritic change. IMPRESSION: No acute osseous injury. Right foot x-rays 3 views HISTORY: Right foot pain. FINDINGS: Mild osteoarthritic change first MTP joint with mild bone spurs. Tiny os peroneus. Spur the plantar calcaneus. No fracture or dislocation. IMPRESSION: No acute osseous injury. Electronically signed by: Romel Vela MD (08/19/2018 9:51 PM) [facility]
--- NOTE | 2018-08-19 21:53 | RAD ---
Right ankle x-rays 3 views HISTORY: Right ankle pain. FINDINGS: Spur the plantar calcaneus. No fracture or dislocation. No arthritic change. IMPRESSION: No acute osseous injury. Right foot x-rays 3 views HISTORY: Right foot pain. FINDINGS: Mild osteoarthritic change first MTP joint with mild bone spurs. Tiny os peroneus. Spur the plantar calcaneus. No fracture or dislocation. IMPRESSION: No acute osseous injury. Electronically signed by: Romel Vela MD (08/19/2018 9:51 PM) [facility]
== END 2018-08-19 20:52 | disposition home or self-care (01) ==
LOC: ER 19:05
DX: M25.571 Pain in right ankle and joints of right foot (principal); M79.671 Pain in right foot; F41.9 Anxiety disorder, unspecified; J45.909 Unspecified asthma, uncomplicated; E11.9 Type 2 diabetes mellitus without complications; I25.2 Old myocardial infarction; Z98.51 Tubal ligation status; Z88.1 Allergy status to other antibiotic agents; Z88.0 Allergy status to penicillin
CPT/HCPCS: 73610; 73630; 99284

== ENCOUNTER 2019-04-07 19:03 | Inpatient (IN) | payer SELFPAY ==
[~2019-04-07] VITALS: Ht 165.1 cm; Wt 90.9 kg
[~2019-04-07 19:03] MED LIST changes: -D-ME118S2 PO; -DIGO125T PO; +DIGO125T3 PO; +METF500T11 PO; -METF500T9 PO; +PROM118S9 PO
--- NOTE | 2019-04-07 19:31 | RAD ---
Portable AP chest. HISTORY: Chest discomfort AP view was taken of the chest. Lungs are clear. Heart is normal in size. There is no pleural effusion. IMPRESSION: 1. No acute chest disease. Electronically signed by: Dru Mendez MD (04/07/2019 7:28 PM) [id number]
[2019-04-07 19:51] LABS: BASO # 0.1 x10^3/uL (0.0-0.2); BASO % 1 % (0-3); EOS # 0.3 x10^3/uL (0.0-0.7); EOS % 5 % (0-3); HEMATOCRIT 39.9 % (36.0-47.0); HEMOGLOBIN 13.5 g/dL (12.0-15.5); LYMPH # 2.5 x10^3/uL (1.0-4.8); LYMPH % 32 % (24-48); MEAN CORPUSCULAR HEMOGLOBIN 31 pg (25-35); MEAN CORPUSCULAR HGB CONC 34 g/dL (31-37); MEAN CORPUSCULAR VOLUME 90 fL (79-100); MONO # 0.5 x10^3/uL (0.0-1.1); MONO % 6 % (0-9); NEUT # 4.3 x10^3/uL (1.8-7.7); NEUT % 56 % (31-73); PLATELET COUNT 271 x10^3/uL (140-400); RED BLOOD COUNT 4.44 x10^6/uL (3.50-5.40); RED CELL DISTRIBUTION WIDTH 13.2 % (11.5-14.5); WHITE BLOOD COUNT 7.6 x10^3/uL (4.0-11.0)
[2019-04-07 20:21] LABS: CALCIUM 9.8 mg/dL (8.5-10.1); CREATININE 0.8 mg/dL (0.6-1.0); GFR 79.9; POTASSIUM 4.3 mmol/L (3.5-5.1)
[2019-04-07 20:27] LABS: ALBUMIN 4.1 g/dL (3.4-5.0); ALBUMIN/GLOBULIN RATIO 1.5 (1.0-1.7); TOTAL BILIRUBIN 0.4 mg/dL (0.2-1.0); TOTAL PROTEIN 6.8 g/dL (6.4-8.2)
[2019-04-08] VITALS (7 sets, daily range): BP systolic 105–139; BP diastolic 51–67
--- NOTE | 2019-04-08 02:35 | PHYS DOC ---
Past Medical History Past Medical History: Anxiety, Asthma, Bronchitis, Diabetes-Type II, ID, MRSA, Other Additional Past Medical Histor: CYST FACE REMOVED,NASAL SURG, MRSA, cardiac stent 01/2018 Past Surgical History: Tubal ligation, Other Additional Past Surgical Histo: CYST REMOVAL,BREAST REDUCT,LUMP REMOVAL-BENIGN Smoking Status: Former Smoker Alcohol Use: Occasionally Drug Use: None Adult General Chief Complaint Chief Complaint: CHEST PAIN-CARDIAC NATURE HPI HPI Patient is a 38 year old female with history of CAD who presents with intermittent chest pain past several days. Pain is left-sided and nonradiating. It is not associated with nausea vomiting or shortness of breath. Pain reproduces while at work with exertion. 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 Denies tenderness to palpation. Leg pain or swelling. No other acute symptoms or complaints.. [] Review of Systems Review of Systems Review OF symptoms as per history of present illness. All other review symptoms are negative. All other systems were reviewed and found to be within normal limits, except as documented in this note. Current Medications Current Medications EKG: Reviewed Allergies Allergies Allergies Coded Allergies Type Severity Reaction Last Updated Verified Cephalosporins Allergy Intermediate Hives 02/20/18 Yes Penicillins Allergy Intermediate Hives 04/01/16 Yes Physical Exam Physical Exam Constitutional: Well developed, well nourished, no acute distress, non-toxic appearance. [] HENT: Normocephalic, atraumatic, bilateral external ears normal, oropharynx moist, no oral exudates, nose normal. [] Eyes: PERRLA, EOMI, conjunctiva normal, no discharge. [] Neck: Normal range of motion, no tenderness, supple, no stridor. [] Cardiovascular:Heart rate regular rhythm, no murmur [] Lungs & Thorax: Bilateral breath sounds clear to auscultation [] Abdomen: Bowel sounds normal, soft, no tenderness, no masses, no pulsatile masses. [] Skin: Warm, dry, no erythema, no rash. [] Back: No tenderness, no CVA tenderness. [] Extremities: No tenderness, no cyanosis, no clubbing, ROM intact, no edema. [] Neurologic: Alert and oriented X 3, normal motor function, normal sensory function, no focal deficits noted. [] Psychologic: Affect normal, judgement normal, mood normal. [] Current Patient Data Vital Signs Vital Signs Date Time Temp Pulse Resp B/P (MAP) Pulse Ox O2 Delivery O2 Flow Rate FiO2 04/07/19 19:08 98.3 85 18 167/84 (111) 100 Room Air 98.3 Lab Values Laboratory Tests Test 04/07/19 19:40 White Blood Count 7.6 x10^3/uL (4.0-11.0) Red Blood Count 4.44 x10^6/uL (3.50-5.40) Hemoglobin 13.5 g/dL (12.0-15.5) Hematocrit 39.9 % (36.0-47.0) Mean Corpuscular Volume 90 fL (79-100) Mean Corpuscular Hemoglobin 31 pg (25-35) Mean Corpuscular Hemoglobin Concent 34 g/dL (31-37) Red Cell Distribution Width 13.2 % (11.5-14.5) Platelet Count 271 x10^3/uL (140-400) Neutrophils (%) (Auto) 56 % (31-73) Lymphocytes (%) (Auto) 32 % (24-48) Monocytes (%) (Auto) 6 % (0-9) Eosinophils (%) (Auto) 5 % (0-3) H Basophils (%) (Auto) 1 % (0-3) Neutrophils # (Auto) 4.3 x10^3/uL (1.8-7.7) Lymphocytes # (Auto) 2.5 x10^3/uL (1.0-4.8) Monocytes # (Auto) 0.5 x10^3/uL (0.0-1.1) Eosinophils # (Auto) 0.3 x10^3/uL (0.0-0.7) Basophils # (Auto) 0.1 x10^3/uL (0.0-0.2) D-Dimer (Kristin) 0.31 ug/mlFEU (0.00-0.50) Sodium Level 138 mmol/L (136-145) Potassium Level 4.3 mmol/L (3.5-5.1) Chloride Level 102 mmol/L (98-107) Carbon Dioxide Level 23 mmol/L (21-32) Anion Gap 13 (6-14) Blood Urea Nitrogen 15 mg/dL (7-20) Creatinine 0.8 mg/dL (0.6-1.0) Estimated GFR (Cockcroft-Gault) 79.9 BUN/Creatinine Ratio 19 (6-20) Glucose Level 230 mg/dL (70-99) H Calcium Level 9.8 mg/dL (8.5-10.1) Total Bilirubin 0.4 mg/dL (0.2-1.0) Aspartate Amino Transferase (AST) 20 U/L (15-37) Alanine Aminotransferase (ALT) 26 U/L (14-59) Alkaline Phosphatase 66 U/L (46-116) Troponin I Quantitative < 0.017 ng/mL (0.000-0.055) KT-Hyx-R-Type Natriuretic Peptide 557 pg/mL (0-124) H Total Protein 6.8 g/dL (6.4-8.2) Albumin 4.1 g/dL (3.4-5.0) Albumin/Globulin Ratio 1.5 (1.0-1.7) Laboratory Tests 04/07/19 19:40 Laboratory Tests 04/07/19 19:40 EKG EKG [ekg: REVIEWED] Radiology/Procedures Radiology/Procedures cxr: REVIEWED Course & Med Decision Making Course & Med Decision Making Pertinent Labs and Imaging studies reviewed. (See chart for details) [Exertional chest pain with history of CAD. While at the hospital service for further evaluation and treatment with cardiology consult Dragon Disclaimer Dragon Disclaimer This electronic medical record was generated, in whole or in part, using a voice recognition dictation system. Departure Departure Impression: Primary Impression: Chest pain Disposition: HOME, SELF-CARE Condition: STABLE Referrals: ERIKA ESTRADA MD (PCP) TESHA WARE DO Apr 08, 2019 02:35
[2019-04-08] MEDS ORDERED: ONDANSETRON PF 4 MG/2 ML VIAL. IV PRN (02:45)
--- NOTE | 2019-04-08 04:50 | EKG ---
[facility] [address] [place] [address] Test Date: 2019-04-07 Test Time: 19:10:00 Pat Name: FIDELIA WALLACE Department: Room: ED HOLD 13 Gender: F Gatekeeper: : 1980 Requested By: TESHA WARE Order Number: [id number] Reading MD: Measurements Intervals [place] Rate: 98 P: 59 CA: 136 QRS: -58 QRSD: 78 T: 41 QT: 366 QTc: 469 Interpretive Statements SINUS RHYTHM ABNORMAL LEFT AXIS DEVIATION LOW LIMB LEAD VOLTAGE QRS(T) CONTOUR ABNORMALITY CONSISTENT WITH ANTERIOR INFARCT AGE UNDETERMINED CONSISTENT WITH INFERIOR INFARCT PROBABLY OLD ABNORMAL ECG RI6.01 No previous ECG available for comparison
--- NOTE | 2019-04-08 10:33 | PDOC1 ---
History and Physical Date of Admission Date of Admission DATE: 04/08/19 TIME: 10:33 Identification/Chief Complaint Chief Complaint seen in er , 38 year old female with history of CAD who presents with intermittent chest pain past several days. Pain is left-sided and nonradiating. I/// not associated with nausea vomiting or shortness of breath. Pain reproduces while at work with exertion. 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 Denies tenderness to palpation. Leg pain or swelling. No other acute symptoms or complaints HAS KNOWN HX ASHD Past Medical History Past Medical History Past Medical History Past Medical History Past Medical History: Anxiety, Asthma, Bronchitis, Diabetes-Type II, CO, MRSA, Other Additional Past Medical Histor: CYST FACE REMOVED,NASAL SURG, MRSA, cardiac stent 01/2018 Past Surgical History: Tubal ligation, Other Additional Past Surgical Histo: CYST REMOVAL,BREAST REDUCT,LUMP REMOVAL-BENIGN Smoking Status: Former Smoker Alcohol Use: Occasionally Drug Use: None fhx obesity Cardiovascular: AFIB, CAD, CHF, CO, Hyperlipidemia Pulmonary: No pertinent hx GI: GERD Heme/Onc: No pertinent hx Hepatobiliary: No pertinent hx Psych: No pertinent hx Musculoskeletal: low back pain Rheumatologic: No pertinent hx Infectious disease: No pertinent hx Renal/: No pertinent hx Endocrine: Diabetes Past Surgical History Past Surgical History: Tubal Ligation Family History Family History: Coronary Artery Disease, Heart Disease, High Cholestrol Family History: Grandparents Social History Smoke: No ALCOHOL: none Drugs: None Current Medications Current Medications Current Medications Ondansetron HCl (Zofran) 4 mg PRN Q8HRS PRN IV NAUSEA/VOMITING; Start 04/08/19 at 02:45; Stop 04/09/19 at 02:44 Active Scripts Active [Pantoprazole] 40 MG Tablet.dr 40 Mg PO DAILYAC 30 Days Furosemide 40 Mg Tablet 40 Mg PO DAILY 30 Days Klor-Con 10 (Potassium Chloride) 10 Meq Tablet.er 10 Meq PO DAILYWBKFT 30 Days Levaquin (Levofloxacin) 500 Mg Tablet 500 Mg PO DAILY06 7 Days Promethazine-Dm Syrup (D-Methorphan Hb/Prometh Hcl) 118 Ml Syrup 5 Ml PO PRN Q4HRS Hydrocodone-Apap 5-325 (Hydrocodone Bit/Acetaminophen) 1 Each Tablet 1 Tab PO PRN Q6HRS PRN Tessalon Perle (Benzonatate) 100 Mg Capsule 100 Mg PO TID PRN Reported Digoxin 125 Mcg Tablet 1 Tab PO DAILY Amiodarone Hcl 200 Mg Tablet 1 Tab PO DAILY Colcrys (Colchicine) 0.6 Mg Tablet 1 Tab PO DAILY Atorvastatin Calcium 40 Mg Tablet 1 Tab PO QHS Aspirin 81 Mg Tab.chew 1 Tab PO DAILY Clopidogrel (Clopidogrel Bisulfate) 75 Mg Tablet 1 Tab PO DAILY Metoprolol Tartrate 25 Mg Tablet 0.5 Tab PO BID Lisinopril 2.5 Mg Tablet 1 Tab PO DAILY Xanax (Alprazolam) 0.5 Mg Tablet 1 Tab PO PRN Q8HRS PRN Citalopram Hbr (Citalopram Hydrobromide) 10 Mg Tablet 1 Tab PO DAILY Glyburide 5 Mg Tablet 1 Tab PO TID Montelukast Sodium Tablet (Montelukast Sodium) 10 Mg Tablet 1 Tab PO DAILY Metformin Hcl Er (Metformin Hcl) 500 Mg Tab.er.24h 3 Tab PO DAILYWBKFT Allergies Allergies: Coded Allergies: Cephalosporins (Verified Allergy, Intermediate, Hives, 02/20/18) Penicillins (Verified Allergy, Intermediate, Hives, 04/01/16) ITCHING, N/V, RASH ROS Review of System 14 pt systems were reviewed and found to be within normal limits, except as documented General: No: Chills, Night Sweats, Fatigue, Malaise, Appetite, Other PSYCHOLOGICAL ROS: No: Anxiety, Behavioral Disorder, Concentration difficultie, Decreased libido, Depression, Disorientation, Hallucinations, Hostility, Irritablity, Memory difficulties, Mood Swings, Obsessive thoughts, Physical abuse, Sexual abuse, Sleep disturbances, Suicidal ideation, Other HEENT: No: Heacaches, Visual Changes, Hearing change, Nasal congestion, Nasal discharge, Oral lesions, Sinus pain, Sore Throat, Epistaxis, Sneezing, Snoring, Tinnitus, Vertigo, Vocal changes, Other Hematological and Lymphatic: No: Bleeding Problems, Blood Clots, Blood Tr ansfusions, Brusing, Night Sweats, Pallor, Swollen Lymph Nodes, Other Respiratory: No: Cough, Hemoptysis, Orthopnea, Pleuritic Pain, Shortness of breath, SOB with excertion, Sputum Changes, Stridor, Tachypnea, Wheezing, Other Cardiovascular: yes Chest Pain; No Palpitations, No Orthopnea, No Paroxysmal Noc. Dyspnea, No Edema, No Lt Headedness, No Other Gastrointestinal: No Nausea, No Vomiting, No Abdominal Pain, No Diarrhea, No Constipation, No Melena, No Hematochezia, No Other Genitourinary: No Dysuria, No Frequency, No Incontinence, No Hematuria, No Retention, No Discharge, No Urgency, No Pain, No Flank Pain, No Other, No , No , No , No , No , No , No Physical Exam Physical Exam Physical Exam Physical Exam Constitutional: Well developed, well nourished, no acute distress, non-toxic appearance. [] HENT: Normocephalic, atraumatic, bilateral external ears normal, oropharynx moist, no oral exudates, nose normal. [] Eyes: PERRLA, EOMI, conjunctiva normal, no discharge. [] Neck: Normal range of motion, no tenderness, supple, no stridor. [] Cardiovascular:Heart rate regular rhythm, no murmur [] Lungs & Thorax: Bilateral breath sounds clear to auscultation [] Abdomen: Bowel sounds normal, soft, no tenderness, no masses, no pulsatile masses. [] Skin: Warm, dry, no erythema, no rash. [] Back: No tenderness, no CVA tenderness. [] Extremities: No tenderness, no cyanosis, no clubbing, ROM intact, no edema. [] Neurologic: Alert and oriented X 3, normal motor function, normal sensory functi on, no focal deficits noted. [] Psychologic: Affect normal, judgment normal, mood normal. [] General: Alert, Oriented X3, Cooperative, No acute distress HEENT: EOMI, Mucous membr. moist/pink Lungs: Clear to auscultation, Normal air movement Heart: RRR Breasts: Not examined Abdomen: Normal bowel sounds, Soft, No tenderness Rectal Exam: not examined Extremities: No cyanosis Neuro: Normal speech, Cranial nerves 3-12 NL Psych/Mental Status: Mental status NL, Mood NL Vitals Vitals Vital Signs Date Time Temp Pulse Resp B/P (MAP) Pulse Ox O2 Delivery O2 Flow Rate FiO2 04/08/19 06:07 78 120/58 (78) 04/08/19 05:07 16 98 Room Air 04/08/19 03:07 98.0 2/10/20 19:08 98.3 98.3 Labs Labs Laboratory Tests Test 04/07/19 19:40 04/08/19 05:45 04/08/19 08:50 White Blood Count 7.6 x10^3/uL (4.0-11.0) Red Blood Count 4.44 x10^6/uL (3.50-5.40) Hemoglobin 13.5 g/dL (12.0-15.5) Hematocrit 39.9 % (36.0-47.0) Mean Corpuscular Volume 90 fL (79-100) Mean Corpuscular Hemoglobin 31 pg (25-35) Mean Corpuscular Hemoglobin Concent 34 g/dL (31-37) Red Cell Distribution Width 13.2 % (11.5-14.5) Platelet Count 271 x10^3/uL (140-400) Neutrophils (%) (Auto) 56 % (31-73) Lymphocytes (%) (Auto) 32 % (24-48) Monocytes (%) (Auto) 6 % (0-9) Eosinophils (%) (Auto) 5 % (0-3) Basophils (%) (Auto) 1 % (0-3) Neutrophils # (Auto) 4.3 x10^3/uL (1.8-7.7) Lymphocytes # (Auto) 2.5 x10^3/uL (1.0-4.8) Monocytes # (Auto) 0.5 x10^3/uL (0.0-1.1) Eosinophils # (Auto) 0.3 x10^3/uL (0.0-0.7) Basophils # (Auto) 0.1 x10^3/uL (0.0-0.2) D-Dimer (Kristin) 0.31 ug/mlFEU (0.00-0.50) Sodium Level 138 mmol/L (136-145) Potassium Level 4.3 mmol/L (3.5-5.1) Chloride Level 102 mmol/L (98-107) Carbon Dioxide Level 23 mmol/L (21-32) Anion Gap 13 (6-14) Blood Urea Nitrogen 15 mg/dL (7-20) Creatinine 0.8 mg/dL (0.6-1.0) Estimated GFR (Cockcroft-Gault) 79.9 BUN/Creatinine Ratio 19 (6-20) Glucose Level 230 mg/dL (70-99) Calcium Level 9.8 mg/dL (8.5-10.1) Total Bilirubin 0.4 mg/dL (0.2-1.0) Aspartate Amino Transf (AST/SGOT) 20 U/L (15-37) Alanine Aminotransferase (ALT/SGPT) 26 U/L (14-59) Alkaline Phosphatase 66 U/L (46-116) Troponin I Quantitative < 0.017 ng/mL (0.000-0.055) < 0.017 ng/mL (0.000-0.055) < 0.017 ng/mL (0.000-0.055) OI-Fmg-W-Type Natriuretic Peptide 557 pg/mL (0-124) Total Protein 6.8 g/dL (6.4-8.2) Albumin 4.1 g/dL (3.4-5.0) Albumin/Globulin Ratio 1.5 (1.0-1.7) Laboratory Tests Test 04/07/19 19:40 04/08/19 05:45 04/08/19 08:50 White Blood Count 7.6 x10^3/uL (4.0-11.0) Red Blood Count 4.44 x10^6/uL (3.50-5.40) Hemoglobin 13.5 g/dL (12.0-15.5) Hematocrit 39.9 % (36.0-47.0) Mean Corpuscular Volume 90 fL (79-100) Mean Corpuscular Hemoglobin 31 pg (25-35) Mean Corpuscular Hemoglobin Concent 34 g/dL (31-37) Red Cell Distribution Width 13.2 % (11.5-14.5) Platelet Count 271 x10^3/uL (140-400) Neutrophils (%) (Auto) 56 % (31-73) Lymphocytes (%) (Auto) 32 % (24-48) Monocytes (%) (Auto) 6 % (0-9) Eosinophils (%) (Auto) 5 % (0-3) Basophils (%) (Auto) 1 % (0-3) Neutrophils # (Auto) 4.3 x10^3/uL (1.8-7.7) Lymphocytes # (Auto) 2.5 x10^3/uL (1.0-4.8) Monocytes # (Auto) 0.5 x10^3/uL (0.0-1.1) Eosinophils # (Auto) 0.3 x10^3/uL (0.0-0.7) Basophils # (Auto) 0.1 x10^3/uL (0.0-0.2) D-Dimer (Kristin) 0.31 ug/mlFEU (0.00-0.50) Sodium Level 138 mmol/L (136-145) Potassium Level 4.3 mmol/L (3.5-5.1) Chloride Level 102 mmol/L (98-107) Carbon Dioxide Level 23 mmol/L (21-32) Anion Gap 13 (6-14) Blood Urea Nitrogen 15 mg/dL (7-20) Creatinine 0.8 mg/dL (0.6-1.0) Estimated GFR (Cockcroft-Gault) 79.9 BUN/Creatinine Ratio 19 (6-20) Glucose Level 230 mg/dL (70-99) Calcium Level 9.8 mg/dL (8.5-10.1) Total Bilirubin 0.4 mg/dL (0.2-1.0) Aspartate Amino Transf (AST/SGOT) 20 U/L (15-37) Alanine Aminotransferase (ALT/SGPT) 26 U/L (14-59) Alkaline Phosphatase 66 U/L (46-116) Troponin I Quantitative < 0.017 ng/mL (0.000-0.055) < 0.017 ng/mL (0.000-0.055) < 0.017 ng/mL (0.000-0.055) MY-Cia-M-Type Natriuretic Peptide 557 pg/mL (0-124) Total Protein 6.8 g/dL (6.4-8.2) Albumin 4.1 g/dL (3.4-5.0) Albumin/Globulin Ratio 1.5 (1.0-1.7) Images Images EXAM: LIMITED Two-dimensional echocardiogram with contrast. Other Information Quality : Average HR: 90bpm Rhythm : NSR INDICATION WMA 2D DIMENSIONS RVDd 2.4 (2.9-3.5cm) IVSd 1.6 (0.7-1.1cm) Aortic Root(2D) 3.0 (2.0-3.7cm) LVDd 4.3 (3.9-5.9cm) PWd 1.1 (0.7-1.1cm) LVDs 2.8 (2.5-4.0cm) FS (%) 35.2 % SV 53.1 ml LEFT VENTRICLE The left ventricle is normal size. Proximal septal thickening is noted. Severe hypokinesis of mid to distal anteroseptal wall and the apical wall. The ejection fraction is estimated at 40-45%. GREAT VESSELS na PERICARDIAL EFFUSION There is no evidence of significant pericardial effusion. Critical Notification Critical Value: No <Conclusion> Limited echo with contrast. Severe hypokinesis of mid to distal anteroseptal wall and the apical wall. The ejection fraction is estimated at 40-45%. There is no evidence of significant pericardial effusion. Signed by : Paulette Garvin, Electronically Approved : 02/22/2018 10:40:13 DICTATED and SIGNED BY: PAULETTE GARVIN MD DATE: 02/22/18 1040 VTE Prophylaxis Ordered VTE Prophylaxis Devices: Yes VTE Pharmacological Prophylaxi: Yes Assessment/Plan Assessment/Plan Impression: Chest pain morbid obesity Chronic systolic HF; LVEF 40-45% per recent echo CAD/ recent late-presentation STEMI; s/p PCI/UNIQUE to LAD. PAFIB; Diabetes, II Dyslipidemia; statin plan admit trend troponin i cardiology consult dvt prophylaxis echo home meds FULL CODE IRIS CHAVIRA MD Apr 08, 2019 10:33
[2019-04-08] MEDS ORDERED: LEXAPRO20 MG PO (10:54)
[2019-04-08] MEDS ORDERED: DEXTROSE 50% 25 GM / 50ML DISP.SYRIN. IV PRN (11:15)
[2019-04-08] MEDS ORDERED: ALPRAZolam 0.5 MG TABLET PO PRN (11:15)
[2019-04-08] MEDS ORDERED: BENZONATATE 100 MG CAPSULE. PO PRN (11:15)
[2019-04-08] MEDS ORDERED: IV DEXTROSE 5% 250 ML BAG. IV PRN (11:15)
--- NOTE | 2019-04-08 11:27 | PDOC2 ---
YESICA SNOWDEN PSYCHOLOGY PROFESSOR 04/08/19 1127: CARDIAC CONSULT DATE OF CONSULT Date of Consult DATE: 04/08/19 TIME: 11:21 REASON FOR CONSULT Reason for Consult: Chest pain REFERRING PHYSICIAN Referring Physician: Cristi SOURCE Source: Chart review, Patient HISTORY OF PRESENT ILLNESS HISTORY OF PRESENT ILLNESS This is a pleasant 38 yo female admitted for complains of chest pain. The pain was in her right chest and only last for few minutes and seconds at times and denies any associated SOA. No nausea or vomiting. She does have allergies and has been sneezing a lot lately. 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 She does get some chest tightness at times when she carries but briefly and this is inconsistent as this does not occur consistently. She lifted some heavy bags the other day and did not bother her. She does have GERD and does not take any PPI. No wheezing but has been mildly coughing. PAST MEDICAL HISTORY Past Medical History Cardiovascular: AFIB (paroxysmal ), CAD (s/p PCI/UNIQUE to LAD), CHF, PR (STEMI), Hyperlipidemia Pulmonary: No pertinent hx GI: GERD Heme/Onc: No pertinent hx Hepatobiliary: No pertinent hx Psych: No pertinent hx Rheumatologic: No pertinent hx Infectious disease: No pertinent hx ENT: No pertinent hx Renal/: No pertinent hx Endocrine: Diabetes Dermatology: No pertinent hx PAST SURGICAL HISTORY Past Surgical History: Other (PCI, UNIQUE to LAD, Tubal Ligation) FAMILY HISTORY Family History: Coronary Artery Disease SOCIAL HISTORY Smoke: Quit ALCOHOL: none Drugs: None ALLERGIES ALLERGIES: Coded Allergies: Cephalosporins (Verified Allergy, Intermediate, Hives, 02/20/18) Penicillins (Verified Allergy, Intermediate, Hives, 04/01/16) ITCHING, N/V, RASH ROS Review of System 14 point ROS evaluated with pertinent positives noted per HPI PHYSICAL EXAM General: Alert, Oriented X3, Cooperative, No acute distress HEENT: Atraumatic, Mucous membr. moist/pink, Other (rhinorrhea) Lungs: Clear to auscultation, Normal air movement Heart: Regular rate (SR), Normal S1, Normal S2, No murmurs Abdomen: Soft, No tenderness Extremities: No cyanosis, No edema Skin: No breakdown, No significant lesion Neuro: Normal speech, Sensation intact Psych/Mental Status: Mental status NL, Mood NL MUSCULOSKELETAL: Osteoarthritic changes both hands VITALS/I&O VITALS/I&O: Vital Signs Date Time Temp Pulse Resp B/P (MAP) Pulse Ox O2 Delivery O2 Flow Rate FiO2 04/08/19 06:07 78 120/58 (78) 04/08/19 05:07 16 98 Room Air 04/08/19 03:07 98.0 04/07/19 19:08 98.3 98.3 LABS Lab: Laboratory Tests Test 04/07/19 19:40 04/08/19 05:45 04/08/19 08:50 04/08/19 10:47 White Blood Count 7.6 x10^3/uL (4.0-11.0) Red Blood Count 4.44 x10^6/uL (3.50-5.40) Hemoglobin 13.5 g/dL (12.0-15.5) Hematocrit 39.9 % (36.0-47.0) Mean Corpuscular Volume 90 fL (79-100) Mean Corpuscular Hemoglobin 31 pg (25-35) Mean Corpuscular Hemoglobin Concent 34 g/dL (31-37) Red Cell Distribution Width 13.2 % (11.5-14.5) Platelet Count 271 x10^3/uL (140-400) Neutrophils (%) (Auto) 56 % (31-73) Lymphocytes (%) (Auto) 32 % (24-48) Monocytes (%) (Auto) 6 % (0-9) Eosinophils (%) (Auto) 5 % (0-3) H Basophils (%) (Auto) 1 % (0-3) Neutrophils # (Auto) 4.3 x10^3/uL (1.8-7.7) Lymphocytes # (Auto) 2.5 x10^3/uL (1.0-4.8) Monocytes # (Auto) 0.5 x10^3/uL (0.0-1.1) Eosinophils # (Auto) 0.3 x10^3/uL (0.0-0.7) Basophils # (Auto) 0.1 x10^3/uL (0.0-0.2) D-Dimer (Kristin) 0.31 ug/mlFEU (0.00-0.50) Sodium Level 138 mmol/L (136-145) Potassium Level 4.3 mmol/L (3.5-5.1) Chloride Level 102 mmol/L (98-107) Carbon Dioxide Level 23 mmol/L (21-32) Anion Gap 13 (6-14) Blood Urea Nitrogen 15 mg/dL (7-20) Creatinine 0.8 mg/dL (0.6-1.0) Estimated GFR (Cockcroft-Gault) 79.9 BUN/Creatinine Ratio 19 (6-20) Glucose Level 230 mg/dL (70-99) H Calcium Level 9.8 mg/dL (8.5-10.1) Total Bilirubin 0.4 mg/dL (0.2-1.0) Aspartate Amino Transferase (AST) 20 U/L (15-37) Alanine Aminotransferase (ALT) 26 U/L (14-59) Alkaline Phosphatase 66 U/L (46-116) Troponin I Quantitative < 0.017 ng/mL (0.000-0.055) < 0.017 ng/mL (0.000-0.055) < 0.017 ng/mL (0.000-0.055) QS-Kuy-R-Type Natriuretic Peptide 557 pg/mL (0-124) H Total Protein 6.8 g/dL (6.4-8.2) Albumin 4.1 g/dL (3.4-5.0) Albumin/Globulin Ratio 1.5 (1.0-1.7) Glucose (Fingerstick) 299 mg/dL (70-99) H Laboratory Tests 04/07/19 19:40 Laboratory Tests 04/07/19 19:40 ECHOCARDIOGRAM ECHOCARDIOGRAM <Conclusion> Limited echo with contrast. Severe hypokinesis of mid to distal anteroseptal wall and the apical wall. The ejection fraction is estimated at 40-45%. There is no evidence of significant pericardial effusion. DATE: 02/22/18 1040 HEART CATH HEART CATH Conclusion 1. Delayed presentation of an anterior STEMI (Greater than 48 hours) 2. One vessel CAD 3. Successful PCI of the LAD with implantation of a Resolute 3.5/22 mm UNIQUE, post-dilated with a 4.0 mm NC balloon. Recommendations ASA 81mg daily indefinitely Plavix 75 mg daily for 1 full year, consider longer duration therapy if tolerated. High dose statin therapy Tobacco cessation Cardiac rehab referral after insurance obatined Social work consult Echocardiogram Consider lifevest based on echocardiogram. DATE: 02/20/18 0655 ASSESSMENT/PLAN ASSESSMENT/PLAN 1. Chest pain, atypical. suspect GI.: trops nml no EKG changes 2. Hx of systolic CHF, ICM: Recent EF at 55% with mild anterior wall hypokinesis noted in 06/2018. Compenasted 3. CAD: s/p PCI/UNIQUE to LAD 01/2018 4. Hx of PAFIB: noted post revascularization. Likely to be low burden hence no longer on eliquis and was on this briefly 5. DM2 6. HLP 9. Chronic allergic rhinitis: environmental factors such as workplace contributing to exacerbation 10. GERD Recommendations 1. Resume secondary prevention measures including lisinopril, metoprolol 2. Continue ASA and plavix. 3. May need flonase. Defer rhinorrhea to PCP. 4. Start on pepcid. LURDES CARRINGTON MD 04/09/19 0817: CARDIAC CONSULT ASSESSMENT/PLAN ASSESSMENT/PLAN Pt. seen and examined. Agree with above RN MANAGER note. Supportive care. Late entry for 04/08/19 Non-cardiac pain. Ok to DC w/ outpt f/u. thanks YESICA SNOWDEN APRN Apr 08, 2019 11:27 LURDES CARRINGTON MD Apr 09, 2019 08:17
[2019-04-08 12:07] LABS: CHOLESTEROL/HDL RATIO 3.9
[2019-04-08] MEDS ORDERED: DOCUSATE SODIUM 100 MG CAPSULE. PO PRN (12:45)
[2019-04-08] MEDS ORDERED: guaiFENesin ORAL 200 MG/10 ML LIQUID. PO PRN (12:45)
[2019-04-08] MEDS ORDERED: LORazepam 0.5 MG TABLET PO PRN (12:45)
[2019-04-08] MEDS ORDERED: 0.9 % SODIUM CHLORIDE 10 ML DISP.SYRIN. IV PRN (12:45)
[2019-04-08] MEDS ORDERED: MAG HYDROX/ALUMINUM HYD/SIMETH 30 ML ORAL.SUSP PO PRN (12:45)
[2019-04-08] MEDS ORDERED: cloNIDine HCL 0.1 MG TABLET PO PRN (12:45)
[2019-04-08] MEDS ORDERED: ALBUTEROL SULFATE 2.5 MG/3 ML NEBU. NEB PRN (12:45)
--- NOTE | 2019-04-08 13:44 | NUR ---
This RN received report from RONAL Mckoy in ER at 1315. Pt arrived on unit by wheelchair at 1335. Pt oriented to room and call light. Pt denies pain at this time. Will assume care and monitor this pt.
[2019-04-08] MEDS ORDERED: ENOXAPARIN 40 MG/0.4 ML SYRINGE. SQ SCH (16:00)
--- NOTE | 2019-04-08 16:53 | NUR ---
Pt's FSBS 382. Dr. Rocha notified in person. Orders received to give 9 units per sliding scale and recheck in an hour. Will continue to monitor pt.
[2019-04-08] MEDS ORDERED: INSULIN LISPRO 300 UNITS/3 ML VIAL. SQ SCH (17:00)
--- NOTE | 2019-04-08 17:54 | NUR ---
Pt's recheck FSBS was 291. Dr. Rocha notified. Orders to give 5 units Humalog and recheck in one hour. Will continue to monitor pt.
[2019-04-08] MEDS ORDERED: INSULIN LISPRO 300 UNITS/3 ML VIAL. SQ ONE (18:00)
--- NOTE | 2019-04-08 19:34 | PDOC3 ---
Discharge Summary Date of Admission: Apr 08, 2019 Date of Discharge: Apr 08, 2019 Follow-Up: 3-5 days Admitting Diagnosis comment: VTE Prophylaxis Ordered VTE Prophylaxis Devices: Yes VTE Pharmacological Prophylaxi: Yes dismissal dx Assessment/Plan Impression: Chest pain morbid obesity Chronic systolic HF; LVEF 40-45% per recent echo CAD/ recent late-presentation STEMI; s/p PCI/UNIQUE to LAD. PAFIB; Diabetes, II Dyslipidemia; statin plan admit trend troponin i cardiology consult ok to d/c this pm dvt prophylaxis echo home meds FULL CODE Brief Hospital Course Ms. Leigh is a 38 old [sex] who presented with [chest pain ] CONDITION AT DISCHARGE: Improved Discharge Medications Current Medications Ondansetron HCl (Zofran) 4 mg PRN Q8HRS PRN IV NAUSEA/VOMITING; Start 04/08/19 at 02:45; Stop 04/09/19 at 02:44 Alprazolam (Xanax) 0.5 mg PRN Q8HRS PRN PO ANXIETY / AGITATION; Start 04/08/19 at 11:15; Status UNV Amiodarone HCl (Cordarone) 200 mg DAILY PO ; Start 04/09/19 at 09:00; Status UNV Aspirin (Children'S Aspirin) 81 mg DAILY PO ; Start 04/09/19 at 09:00 Atorvastatin Calcium (Lipitor) 40 mg QHS PO ; Start 04/08/19 at 21:00 Benzonatate (Tessalon Perle) 100 mg TID PRN PO COUGH; Start 04/08/19 at 11:15; Status UNV Digoxin (Lanoxin) 125 mcg DAILY PO ; Start 04/09/19 at 09:00; Status UNV Furosemide (Lasix) 40 mg DAILY PO ; Start 04/09/19 at 09:00; Status UNV Glyburide (Diabeta) 10 mg BID PO ; Start 04/08/19 at 21:00 Metformin HCl (Glucophage Xr) 1,000 mg BID PO ; Start 04/08/19 at 21:00; Status UNV Metoprolol Tartrate (Lopressor) 12.5 mg BID PO ; Start 04/08/19 at 21:00 Potassium Chloride (Klor-Con) 10 meq DAILYWBKFT PO ; Start 04/09/19 at 08:00; Status UNV Citalopram Hydrobromide (CeleXA) 40 mg DAILY PO ; Start 04/09/19 at 09:00 Non-Formulary Medication ([Pantoprazole] ) 40 mg DAILYAC PO ; Start 04/09/19 at 07:30; Status UNV Insulin Human Lispro (HumaLOG) 0-9 UNITS TIDWMEALS SQ Last administered on 04/08/19at 17:05; Start 04/08/19 at 17:00 Dextrose (Dextrose 50%-Water Syringe) 12.5 gm PRN Q15MIN PRN IV SEE COMMENTS; Start 04/08/19 at 11:15 Dextrose (Iv Dextrose 5%) 250 ml PRN Q15MIN PRN IV SEE COMMENTS; Start 04/08/19 at 11:15 Sodium Chloride (Normal Saline Flush) 3 ml QSHIFT PRN IV AFTER MEDS AND BLOOD DRAWS; Start 04/08/19 at 12:45 Al Hydroxide/Mg Hydroxide (Mylanta Plus Xs) 30 ml PRN DAILY PRN PO HEARTBURN / GAS; Start 04/08/19 at 12:45 Clonidine HCl (Catapres) 0.1 mg PRN Q6HRS PRN PO SBP>160 OR DBP>90; Start 01/15 at 12:45 Docusate Sodium (Colace) 100 mg PRN BID PRN PO CONSTIPATION; Start 04/08/19 at 12:45 Albuterol Sulfate (Ventolin Neb Soln) 2.5 mg PRN Q4HRS PRN NEB SHORTNESS OF BREATH; Start 04/08/19 at 12:45 Guaifenesin (Robitussin) 200 mg PRN Q4HRS PRN PO COUGH; Start 04/08/19 at 12:45 Lorazepam (Ativan) 0.5 mg PRN Q4HRS PRN PO ANXIETY / AGITATION; Start 04/08/19 at 12:45 Enoxaparin Sodium (Lovenox 40mg Syringe) 40 mg Q24H SQ ; Start 04/08/19 at 16:00 Montelukast Sodium (Singulair) 10 mg QHS PO ; Start 04/08/19 at 21:00 Famotidine (Pepcid) 20 mg QHS PO ; Start 04/08/19 at 21:00 Insulin Human Lispro (HumaLOG) 5 units 1X ONCE SQ Last administered on 04/08/19at 18:05; Start 04/08/19 at 18:00; Stop 04/08/19 at 18:01; Status DC Active Scripts Active Furosemide 40 Mg Tablet 40 Mg PO DAILY 30 Days Klor-Con 10 (Potassium Chloride) 10 Meq Tablet.er 10 Meq PO DAILYWBKFT 30 Days Hydrocodone-Apap 5-325 (Hydrocodone Bit/Acetaminophen) 1 Each Tablet 1 Tab PO PRN Q6HRS PRN Tessalon Perle (Benzonatate) 100 Mg Capsule 100 Mg PO TID PRN Reported Lexapro (Escitalopram Oxalate) 20 Mg Tablet 1 Tab PO DAILY Digoxin 125 Mcg Tablet 1 Tab PO DAILY Amiodarone Hcl 200 Mg Tablet 1 Tab PO DAILY Colcrys (Colchicine) 0.6 Mg Tablet 1 Tab PO DAILY Atorvastatin Calcium 40 Mg Tablet 1 Tab PO QHS Aspirin 81 Mg Tab.chew 1 Tab PO DAILY Clopidogrel (Clopidogrel Bisulfate) 75 Mg Tablet 1 Tab PO DAILY Metoprolol Tartrate 25 Mg Tablet 0.5 Tab PO BID Lisinopril 2.5 Mg Tablet 1 Tab PO DAILY Xanax (Alprazolam) 0.5 Mg Tablet 1 Tab PO PRN Q8HRS PRN Citalopram Hbr (Citalopram Hydrobromide) 10 Mg Tablet 1 Tab PO DAILY Glyburide 5 Mg Tablet 2 Tab PO BID Montelukast Sodium Tablet (Montelukast Sodium) 10 Mg Tablet 1 Tab PO DAILY Metformin Hcl Er (Metformin Hcl) 500 Mg Tab.er.24h 2 Tab PO BID Vital Signs Vital Signs Date Time Temp Pulse Resp B/P (MAP) Pulse Ox O2 Delivery O2 Flow Rate FiO2 04/08/19 15:00 97.9 93 17 129/64 (85) 96 Room Air 97.9 04/08/19 03:07 98.0 Labs Laboratory Tests Test 04/07/19 19:40 04/08/19 05:45 04/08/19 08:50 04/08/19 10:47 White Blood Count 7.6 x10^3/uL (4.0-11.0) Red Blood Count 4.44 x10^6/uL (3.50-5.40) Hemoglobin 13.5 g/dL (12.0-15.5) Hematocrit 39.9 % (36.0-47.0) Mean Corpuscular Volume 90 fL (79-100) Mean Corpuscular Hemoglobin 31 pg (25-35) Mean Corpuscular Hemoglobin Concent 34 g/dL (31-37) Red Cell Distribution Width 13.2 % (11.5-14.5) Platelet Count 271 x10^3/uL (140-400) Neutrophils (%) (Auto) 56 % (31-73) Lymphocytes (%) (Auto) 32 % (24-48) Monocytes (%) (Auto) 6 % (0-9) Eosinophils (%) (Auto) 5 % (0-3) Basophils (%) (Auto) 1 % (0-3) Neutrophils # (Auto) 4.3 x10^3/uL (1.8-7.7) Lymphocytes # (Auto) 2.5 x10^3/uL (1.0-4.8) Monocytes # (Auto) 0.5 x10^3/uL (0.0-1.1) Eosinophils # (Auto) 0.3 x10^3/uL (0.0-0.7) Basophils # (Auto) 0.1 x10^3/uL (0.0-0.2) D-Dimer (Kristin) 0.31 ug/mlFEU (0.00-0.50) Sodium Level 138 mmol/L (136-145) Potassium Level 4.3 mmol/L (3.5-5.1) Chloride Level 102 mmol/L (98-107) Carbon Dioxide Level 23 mmol/L (21-32) Anion Gap 13 (6-14) Blood Urea Nitrogen 15 mg/dL (7-20) Creatinine 0.8 mg/dL (0.6-1.0) Estimated GFR (Cockcroft-Gault) 79.9 BUN/Creatinine Ratio 19 (6-20) Glucose Level 230 mg/dL (70-99) Calcium Level 9.8 mg/dL (8.5-10.1) Total Bilirubin 0.4 mg/dL (0.2-1.0) Aspartate Amino Transf (AST/SGOT) 20 U/L (15-37) Alanine Aminotransferase (ALT/SGPT) 26 U/L (14-59) Alkaline Phosphatase 66 U/L (46-116) Troponin I Quantitative < 0.017 ng/mL (0.000-0.055) < 0.017 ng/mL (0.000-0.055) < 0.017 ng/mL (0.000-0.055) RZ-Tzy-Y-Type Natriuretic Peptide 557 pg/mL (0-124) Total Protein 6.8 g/dL (6.4-8.2) Albumin 4.1 g/dL (3.4-5.0) Albumin/Globulin Ratio 1.5 (1.0-1.7) Triglycerides Level 176 mg/dL (0-150) Cholesterol Level 147 mg/dL (0-200) LDL Cholesterol, Calculated 74 mg/dL (0-100) VLDL Cholesterol, Calculated 35 mg/dL (0-40) Non-HDL Cholesterol Calculated 109 mg/dL (0-129) HDL Cholesterol 38 mg/dL (40-60) Cholesterol/HDL Ratio 3.9 Thyroid Stimulating Hormone (TSH) 0.946 uIU/mL (0.358-3.74) Glucose (Fingerstick) 299 mg/dL (70-99) Test 04/08/19 16:30 04/08/19 17:42 Glucose (Fingerstick) 382 mg/dL (70-99) 291 mg/dL (70-99) Laboratory Tests Test 04/07/19 19:40 04/08/19 05:45 04/08/19 08:50 04/08/19 10:47 White Blood Count 7.6 x10^3/uL (4.0-11.0) Red Blood Count 4.44 x10^6/uL (3.50-5.40) Hemoglobin 13.5 g/dL (12.0-15.5) Hematocrit 39.9 % (36.0-47.0) Mean Corpuscular Volume 90 fL (79-100) Mean Corpuscular Hemoglobin 31 pg (25-35) Mean Corpuscular Hemoglobin Concent 34 g/dL (31-37) Red Cell Distribution Width 13.2 % (11.5-14.5) Platelet Count 271 x10^3/uL (140-400) Neutrophils (%) (Auto) 56 % (31-73) Lymphocytes (%) (Auto) 32 % (24-48) Monocytes (%) (Auto) 6 % (0-9) Eosinophils (%) (Auto) 5 % (0-3) Basophils (%) (Auto) 1 % (0-3) Neutrophils # (Auto) 4.3 x10^3/uL (1.8-7.7) Lymphocytes # (Auto) 2.5 x10^3/uL (1.0-4.8) Monocytes # (Auto) 0.5 x10^3/uL (0.0-1.1) Eosinophils # (Auto) 0.3 x10^3/uL (0.0-0.7) Basophils # (Auto) 0.1 x10^3/uL (0.0-0.2) D-Dimer (Kristin) 0.31 ug/mlFEU (0.00-0.50) Sodium Level 138 mmol/L (136-145) Potassium Level 4.3 mmol/L (3.5-5.1) Chloride Level 102 mmol/L (98-107) Carbon Dioxide Level 23 mmol/L (21-32) Anion Gap 13 (6-14) Blood Urea Nitrogen 15 mg/dL (7-20) Creatinine 0.8 mg/dL (0.6-1.0) Estimated GFR (Cockcroft-Gault) 79.9 BUN/Creatinine Ratio 19 (6-20) Glucose Level 230 mg/dL (70-99) Calcium Level 9.8 mg/dL (8.5-10.1) Total Bilirubin 0.4 mg/dL (0.2-1.0) Aspartate Amino Transf (AST/SGOT) 20 U/L (15-37) Alanine Aminotransferase (ALT/SGPT) 26 U/L (14-59) Alkaline Phosphatase 66 U/L (46-116) Troponin I Quantitative < 0.017 ng/mL (0.000-0.055) < 0.017 ng/mL (0.000-0.055) < 0.017 ng/mL (0.000-0.055) SD-Fup-U-Type Natriuretic Peptide 557 pg/mL (0-124) Total Protein 6.8 g/dL (6.4-8.2) Albumin 4.1 g/dL (3.4-5.0) Albumin/Globulin Ratio 1.5 (1.0-1.7) Triglycerides Level 176 mg/dL (0-150) Cholesterol Level 147 mg/dL (0-200) LDL Cholesterol, Calculated 74 mg/dL (0-100) VLDL Cholesterol, Calculated 35 mg/dL (0-40) Non-HDL Cholesterol Calculated 109 mg/dL (0-129) HDL Cholesterol 38 mg/dL (40-60) Cholesterol/HDL Ratio 3.9 Thyroid Stimulating Hormone (TSH) 0.946 uIU/mL (0.358-3.74) Glucose (Fingerstick) 299 mg/dL (70-99) Test 04/08/19 16:30 04/08/19 17:42 Glucose (Fingerstick) 382 mg/dL (70-99) 291 mg/dL (70-99) Allergies Allergies Coded Allergies Type Severity Reaction Last Updated Verified Cephalosporins Allergy Intermediate Hives 02/20/18 Yes Penicillins Allergy Intermediate Hives 04/01/16 Yes Disposition/Orders: D/C to Home IRIS CHAVIRA MD Apr 08, 2019 19:34
--- NOTE | 2019-04-08 19:36 | DISCH ---
DISCHARGE INSTRUCTIONS Condition on Discharge Condition on Discharge: Stable Activity After Discharge Activity Instructions for Disc: Other, see below Lifting Instructions after Dis: No heavy lifting, No pulling or pushing, Add. restrict see below Exercise Instruction after Dis: Exercise per Card. Rehab, Progress as tolerated Driving Instructions after Dis: Do not drive today, Other, see below Weight Bearing Status after Di: Other, see below Diet after Discharge Diet after Discharge: Diabetic No Calorie Level Diet Texture: Regular Liquid Texture: Thin Liquid Checks after Discharge Checks after discharge: Check blood press - daily, Check blood sugar, ac/hs Contacting the DR. after DC Call your doctor for: If your condition worsens Follow-Up Follow Up With: primary physician 1-2 wks or as needed Treatment/Equipment after DC Adaptive Equipment Issued: None IRIS CHAVIRA MD Apr 08, 2019 19:36
--- NOTE | 2019-04-08 20:09 | NUR ---
Glucose prior discharge was 128 per report and confirmed by pt. Dr Rocha was informed and got order for discharge. Pt was already out from her room by 2000 accompanied by AMANDA Luna. No complaints of discomfort or chestpain verbalized.
[2019-04-08] MEDS ORDERED: metFORMIN XR 500 MG TAB.ER.24H PO SCH (21:00)
[2019-04-08] MEDS ORDERED: glyBURIDE 5 MG TABLET PO SCH (21:00)
[2019-04-08] MEDS ORDERED: ATORVASTATIN CALCIUM 40 MG TABLET. PO SCH (21:00)
[2019-04-08] MEDS ORDERED: FAMOTIDINE 20 MG TABLET. PO SCH (21:00)
[2019-04-08] MEDS ORDERED: MONTELUKAST SODIUM 10 MG TABLET. PO SCH (21:00)
[2019-04-08] MEDS ORDERED: METOPROLOL TART IMMED RELEASE 25 MG TABLET. PO SCH (21:00)
[2019-04-09] MEDS ORDERED: NON FORMULARY ITEM ([Pantoprazole] 40 MG) PO SCH (07:30)
[2019-04-09] MEDS ORDERED: POTASSIUM CHLORIDE 10 MEQ TABLET.ER. PO SCH (08:00)
[2019-04-09] MEDS ORDERED: DIGOXIN 125 MCG TABLET. PO SCH (09:00)
[2019-04-09] MEDS ORDERED: ASPIRIN CHEWABLE 81 MG TABLET. PO SCH (09:00)
[2019-04-09] MEDS ORDERED: CITALOPRAM 20 MG TABLET. PO SCH (09:00)
[2019-04-09] MEDS ORDERED: AMIODARONE HCL 200 MG TABLET. PO SCH (09:00)
[2019-04-09] MEDS ORDERED: FUROSEMIDE 40 MG TABLET. PO SCH (09:00)
== END 2019-04-08 20:00 | disposition home or self-care (01) | DRG 313 ==
LOC: ER 19:03 → ED HOLD 23:30 → 5 SOUTH 04-08 13:37
PROVIDERS: ADMIT Internal Medicine; ATTEND Internal Medicine
DX: R07.9 Chest pain, unspecified (principal); I50.22 Chronic systolic (congestive) heart failure; K21.9 Gastro-esophageal reflux disease without esophagitis; E78.5 Hyperlipidemia, unspecified; E66.01 Morbid (severe) obesity due to excess calories; F41.9 Anxiety disorder, unspecified; E11.9 Type 2 diabetes mellitus without complications; I48.0 Paroxysmal atrial fibrillation; J45.909 Unspecified asthma, uncomplicated; I25.10 Atherosclerotic heart disease of native coronary artery without angina pectoris; X50.0XXA Overexertion from strenuous movement or load, initial encounter; Z68.33 Body mass index [BMI] 33.0-33.9, adult; Z88.0 Allergy status to penicillin; Z88.8 Allergy status to other drugs, medicaments and biological substances; Z98.51 Tubal ligation status; Y99.0 Civilian activity done for income or pay; I25.2 Old myocardial infarction; Z86.14 Personal history of Methicillin resistant Staphylococcus aureus infection; Z87.891 Personal history of nicotine dependence; Z95.5 Presence of coronary angioplasty implant and graft; Z82.49 Family history of ischemic heart disease and other diseases of the circulatory system
CPT/HCPCS: 36415; 71045; 80053; 80061; 82962; 83880; 84443; 84484; 85025; 85379; 93005; J1815; 99285-25